=== PATIENT | male | born 1970 | race Caucasian/White ===

== ENCOUNTER 2023-08-14 06:56 | Emergency (ER) | payer MEDICARE, SELFPAY ==
[2023-08-14 07:02] VITALS: BP 175/85
[2023-08-14 08:07] VITALS: BMI 44.2
--- NOTE | 2023-08-14 08:13 | ED.GENMED ---
History of Present Illness
General
Chief Complaint: Swelling
Source: patient
Exam Limitations: none
Time Seen by Provider: 08/14/23 07:35
Nursing documentation reviewed up to this point in time: agreed with
Travel History
Have you had any contact with someone who has COVID-19?: No
Do you have any symptoms of coronavirus? Fever > 100 degrees, chills, cough, shortness of breath, sore throat, loss of taste or smell, muscle aches, or headache?: No
History of Present Illness
History of Present Illness:
52-year-old male hypertension presents with right leg swelling oozing from the anterior portion believes he scratched it has been washing with peroxide is red swollen warm no fever no nausea no vomiting no chest pain or shortness of breath has not
been on antibiotics is a smoker trying to quit
Past History
Past History
ED Past Medical History: HTN and Other (substance abuse)
ED Past Surgical History: None
Social History
Tobacco: Smoker (1 ppd)
Alcohol: None
Drug: Former user
Personal: Single
Living: with family
Employment: Employed
Review of Systems
Review of Systems
All Other Systems: ROS reviewed and negative except as documented in HPI and ROS
Constitutional: Denies fever or fatigue
EENT: Reports no symptoms
Respiratory: Reports no symptoms
Cardiac: Reports no symptoms
ABD/GI: Reports no symptoms
: Reports no symptoms
Musculoskeletal: Reports muscle stiffness
Phy Exam
Physical Exam
Physical Exam:
Physical Exam
General: no apparent distress, not acutely ill
Neck: No jaundice
Heart: s1/s2 regular rate and rhythm, no murmur. equal radial pulses.
Lungs: no acute respiratory distress. clear bilaterally
Abdomen: Nontender
Neuro: alert and oriented. no focal neurological deficits
Skin: no rash
Psychiatric: well kept. interactive and cooperative
Extremities: Anterior leg swelling redness oozing from blisters no posterior calf pain bilateral
Scores
Heart Failure Risk
Heart Failure Risk Score: Not Applicable
Course
Orders/Labs/Results
Orders:
Orders
08/14/23 08:00
US Periph Venous LOWER Ext RT Urgent
Comment:
Reason For Exam: swelling
08/14/23 08:08
Complete Blood Count/With Diff Urgent
Comprehensive Metabolic Panel Urgent
Lactic Acid Q4H
Comment: CANCEL 2nd LACTIC ACID IF 1st LACTIC ACID IS LESS THAN 2
Blood Culture Q30M
CHERI Source: Blood/Venous
Specimen Description:
Blood Culture Q30M
CHERI Source: Blood/Venous
Specimen Description:
08/14/23 08:28
CeFAZolin 2 GRAM [Ancef] 2 grams in 10 ml IV NOW
Abnormal Lab Results
08/14/23
08:08
RBC 4.39 L 10^6/uL
(4.70-6.10)
MCH 32.3 H pg
(27.0-31.0)
Absolute Monos (auto) 0.8 H 10^3/uL
(0.1-0.6)
Lymphocytes % 20.3 L %
(20.5-51.1)
AST 64 H U/L
(17-59)
ALT 89 H U/L
(0-50)
08/14/23 08:08
08/14/23 08:08
Vital Signs
Initial and Last Documented VS:
Initial Vital Signs
Temp Pulse Resp BP Pulse Ox
98.8 F 82 18 175/85 97
08/14/23 07:02 08/14/23 07:02 08/14/23 07:02 08/14/23 07:02 08/14/23 07:02
Last Documented Vital Signs
Temp Pulse Resp BP Pulse Ox
98.8 F 67 16 120/60 96
08/14/23 07:02 08/14/23 08:26 08/14/23 08:26 08/14/23 08:26 08/14/23 08:26
MDM/Problems Addressed
Differential Diagnosis Includes:
Cellulitis dermatitis DVT
MDM/Problems Addressed:
Right leg swelling
Chronic conditions affecting care: HTN
Acute Exacerbation and/or Progression of Chronic Illness: HTN
*Critical Care Note
Total Time (30-74mins, 75-104mins- exclusive of procedures): Not Applicable
Update Note
Update Note:
Update labs noted ultrasound noted. Stable for outpatient care
RN reports that Keflex is not covered by his plan patient requesting alternative we will send a prescription for doxycycline
ED Attending Note
-
Portions of this chart may have been created with voice recognition software.� Occasional wrong word or��sound alike� substitutions may have occurred due to the inherent limitations of voice recognition software.
Discharge Plan
Departure
Patient Disposition: Home (Routine Discharge)
Date of Disposition: 08/14/23
Time of Disposition: 09:33
Patient with high blood pressure during this ER visit?: No
Condition: Good
Discharge Problem:
Cellulitis
Instructions: Dependent Edema (DC), Cellulitis (Skin Infection), Adult ED
Prescriptions:
New
cephalexin 750 mg capsule
750 mg PO Q6H 10 Days Qty: 40 0RF
doxycycline monohydrate 100 mg capsule
100 mg PO BID Qty: 20 0RF
No Action
methadone [Methadose] 100 MG/10 ML concentrate
180 mg PO DAILY
metoprolol succinate [Toprol XL] 100 mg Tablet Extended Release 24 Hr
100 mg PO DAILY
lisinopril-hydrochlorothiazide 10-12.5 mg Tablet
1 tab PO DAILY
Referrals:
David Bone MD [Family Provider] - Next open appointment
Activity Restrictions/Additional Instructions:
Elevate your leg, antibiotics as prescribed follow-up with your family doctor return to the ER if worsening symptoms
Interventions
Interventions:
*Risk Screen - Suicide Last Done: 08/14/23 08:08
*General Assessment Last Done: 08/14/23 07:02
*Neglect/Abuse Screening Last Done: 08/14/23 08:08
ED- Fall Risk Assessment Last Done: 08/14/23 08:08
*ED COVID-19 Vaccine History Last Done: 08/14/23 07:02
ED- Cardiac Assessment Last Done: 08/14/23 08:27
ED- Pulmonary Assessment Last Done: 08/14/23 08:27
ED-Skin Assessment Last Done: 08/14/23 08:27
[2023-08-14 08:26] VITALS: BP 120/60
[2023-08-14 08:35] LABS: % Basophils 0.5 % (0-2); % Eosinophils 3.6 % (0-6); % Immature Granulocytes 0.4 % (0-0.5); % Lymphocytes 20.3 % (20.5-51.1); % Monocytes 9.2 % (1.7-9.3); Absolute Eosinophils 0.3 10^3/uL (0-0.7); Absolute Lymphocytes 1.7 10^3/uL (1.2-3.4); Absolute Monocytes 0.8 10^3/uL (0.1-0.6); Absolute Neutrophils 5.4 10^3/uL (1.4-6.5); Hematocrit 40.6 % (39.0-52.0); Hemoglobin 14.2 g/dL (13.0-18.0); Mean Corpuscular Hgb 32.3 pg (27.0-31.0); Mean Corpuscular Volume 92.5 fL (80.0-94.0); Mean Platelet Volume 9.2 fL (7.4-10.4); Nucleated Red Blood Cells % 0 % (-); Platelet Count 221 10^3/uL (130-400); Red Blood Cell Count 4.39 10^6/uL (4.70-6.10); Red Cell Dist. Width 12.7 % (11.5-14.5); White Blood Cell Count 8.2 10^3/uL (4.8-10.8)
[2023-08-14 08:50] LABS: Lactic Acid 1.1 mmol/L (0.7-2.0)
[2023-08-14 08:51] LABS: ALT (SGPT) 89 U/L (0-50); AST (SGOT) 64 U/L (17-59); Albumin 3.9 g/dl (3.5-5.0); Alkaline Phosphatase 78 U/L (38-126); Blood Urea Nitrogen 20 mg/dl (9-20); Calcium 9.2 mg/dl (8.4-10.2); Carbon Dioxide 29 mmol/L (22-30); Chloride 103 mmol/L (98-107); Estimated Creatinine Clearance > 125 ml/min; Glucose 98 mg/dl (70-99); Potassium 3.9 mmol/L (3.5-5.1); Sodium 137 mmol/L (135-145); Total Bilirubin 0.7 mg/dl (0.2-1.3); Total Protein 6.9 g/dl (6.3-8.2); eGFR > 60.00
[2023-08-14] MEDS: ANCEF 10 IV (09:18)
== END 2023-08-14 10:00 | disposition home or self-care (01) ==
LOC: EMR 06:56
PROVIDERS: EMERGENCY PHYSICIAN Emergency Medicine; FAMILY PHYSICIAN Family Medicine
DX: L03.90 Cellulitis, unspecified (principal); I10 Essential (primary) hypertension; F17.200 Nicotine dependence, unspecified, uncomplicated
CPT/HCPCS: 99284; 96374; 80053; 83605; 85025; 87040; 93971

== ENCOUNTER 2025-06-09 03:23 | Inpatient (IN) | payer MEDICARE, SELFPAY ==
[2025-06-08] VITALS (12 sets, daily range): BP systolic 102–129; BP diastolic 62–104; BMI 42.6
[2025-06-08 21:28] LABS: Hematocrit 41.6 % (39.0-52.0); Hemoglobin 14.4 g/dL (13.0-18.0); Mean Corp Hgb Conc. 34.6 g/dL (33.0-37.0); Mean Corpuscular Volume 87.2 fL (80.0-94.0); Nucleated Red Blood Cells % 0 % (-); Platelet Count 296 10^3/uL (130-400); Red Cell Dist. Width 12.7 % (11.5-14.5)
--- NOTE | 2025-06-08 21:29 | ED.GENMED ---
History of Present Illness
General
Chief Complaint: Chest Pain
Source: patient and ambulance crew
Exam Limitations: none
Time Seen by Provider: 06/08/25 21:10
History of Present Illness
History of Present Illness:
54-year-old male chronic pain syndrome on methadone, hypertension, metoprolol on diuretic Lasix smoker presents with shortness of breath, chest pains been having chest pain in mornings for few weeks with exercise intolerance had a toothache today
went to the dentist was given antibiotics, tooth infection, most of last night, apparently was gasping today when he was sleeping, after taking some sleeping pills, EMS was called his tachycardic EKG, denies any chest pain or shortness of breath now
Recently treated with antibiotics for bilateral cellulitis, has had no fever recently, denies any IV drug use
Past History
Past History
ED Past Medical History: CHF, HTN and Other (substance abuse); Negative COPD, GERD, IDDM or Renal failure
ED Past Surgical History: None
Social History
Tobacco: Smoker (1 ppd)
Alcohol: None
Drug: Former user
Personal: Single
Living: with family
Employment: Employed
Phy Exam
Physical Exam
Physical Exam:
Physical Exam
General: Somewhat sleepy but arousable 54 male
Neck: Poor dentition no true
Heart: Regular
Lungs: Basilar crackles
Abdomen: Not tender
Neuro: alert and oriented. no focal neurological deficits
Skin: no rash
Psychiatric: well kept. interactive and cooperative
Extremities: Trace edema with mild redness
Scores
Heart Score for Chest Pain Patients
STEMI patient?: No
History: Moderately Suspicious
ECG: Nonspecific Repolarization
Age: >45 - <65 years
Risk Factors: 1 or 2 Risk Factors
Troponin: >/= 3 x Normal Limit
Heart Score for Chest Pain Patients: 6
Heart Score Risk: 20.3% MACE over next 6 weeks
Course
Orders/Labs/Results
Orders:
Orders
06/08/25 21:10
Electrocardiogram (*1) Urgent
Reason for Study: Chest Pain
Cardiac Monitoring- Treatment ONCE
EKG- Treatment ONCE
IV Insert/Care/Rem.- Treatment PRN
O2 Therapy [RESP] Urgent
Titrate/Wean O2 to maintain O2 sat greater than (%): 90
Special Instructions: Maintain sats >/=90%
Pulse Ox/spot Check [RESP] Urgent
Quantity: 1
Special Instructions: ON ROOM AIR
06/08/25 21:21
Complete Blood Count/With Diff Urgent
Comprehensive Metabolic Panel Urgent
Troponin I Urgent
06/08/25 21:26
Aspirin 325 mg PO NOW STA
CR Chest Portable - 1 View Urgent
Comment:
Reason For Exam: sob
Reason Study Needs to be Portable: Patient Unstable
06/08/25 21:27
Nitroglycerin Sublingual [Nitrostat (Sublingual)] 0.4 mg SL [id number] PRN
06/08/25 22:06
Heparin 4,000 units IV NOW STA
Potassium Chloride [KCl] 40 meq PO NOW STA
06/08/25 22:[address] Non Medication Order As Directed
Physician Order: PTT 6 hours after initial start of Heparin infusion
Above order entered?: Yes
06/08/25 22:15
Heparin 90244 Units/250 ml 25,000 units in 250 ml IV PER PROTOCOL
Weight to be used for heparin protocol in kilograms (kg):: 146.4
Protocol:: Cardiac Tx/Acute Coronary
PTT Goal Range to be used:: PTT 73 to 111 seconds
Order type:: Initial
INITIAL Infusion Dose (UNITS/KG/hr) & then follow protocol:: 12 units/kg/hr
Infusion Dose in UNITS/hr & then follow protocol (UNITS/hr):: 1,000
INFUSION RATE in mL/hr & then follow protocol (mL/hr):: 10
PTT less than or equal to 64 seconds:: Increase rate by 200 units/hr (+ 2 mL/hr)
PTT 64.1 to 72.9 seconds:: Increase rate by 100 units/hr (+ 1 mL/hr)
PTT 73 to 111 seconds:: Target Range. No change in rate.
PTT 111.1 to 130.9 seconds:: Decrease rate by 100 units/hr (- 1 mL/hr)
PTT 131 to 199.9 seconds:: HOLD for 1 hr. Then decrease rate by 200 units/hr (- 2 mL/hr)
PTT greater than or equal to 200 seconds:: HOLD for 2 hrs & Notify Provider. Then decrease by 200 units/hr (-
2 mL/hr)
Lab follow-up:: Each change, PTT q6h until 2 consecutive are therapeutic. Then PTT
daily.
06/08/25 22:31
PT/INR [Prothrombin Time] Urgent
PTT Urgent
06/08/25 22:54
Electrocardiogram (*1) Urgent
Reason for Study: Abdominal Pain
EKG- Treatment ONCE
06/08/25 23:51
CT Chest PE Study Urgent
Comment:
Reason For Exam: cp sob
06/09/25 01:58
Troponin I Routine
06/09/25 02:00
Acetaminophen [Tylenol] 650 mg PO NOW STA
06/09/25 04:30
PTT Urgent
Abnormal Lab Results
06/08/25 06/08/25
21:21 22:31
WBC 18.0 H 10^3/uL
(4.8-10.8)
Abs Immat Gran (auto) 0.1 H 10^3/uL
(0-0.05)
Absolute Neuts (auto) 14.3 H 10^3/uL
(1.4-6.5)
Absolute Monos (auto) 1.2 H 10^3/uL
(0.1-0.6)
Neutrophils % 79.7 H %
(42.2-75.2)
Lymphocytes % 12.4 L %
(20.5-51.1)
APTT 44.0 H Sec
(23.4-35.0)
Sodium 134 L mmol/L
(135-145)
Potassium 3.4 L mmol/L
(3.5-5.1)
Chloride 96 L mmol/L
(98-107)
BUN 22 H mg/dl
(9-20)
Glucose 159 H mg/dl
(70-99)
Troponin I 1.210 H* ng/ml
Total Protein 8.4 H g/dl
(6.3-8.2)
06/08/25 21:21
06/08/25 21:21
Vital Signs
Initial and Last Documented VS:
Initial Vital Signs
Temp Pulse Resp
98.6 F 111 20
06/08/25 21:12 06/08/25 21:12 06/08/25 21:12
Last Documented Vital Signs
Temp Pulse Resp BP Pulse Ox
98.6 F 87 17 138/87 91
06/08/25 21:12 06/09/25 01:45 06/09/25 01:15 06/09/25 01:45 06/08/25 23:45
MDM/Problems Addressed
Differential Diagnosis Includes:
ACS PE pneumothorax pericarditis
MDM/Problems Addressed:
Chest pain shortness
Chronic conditions affecting care: HTN
Acute Exacerbation and/or Progression of Chronic Illness: HTN
*Radiology
Radiology exam reviewed: preliminary read by ED provider
*Pulse Oximetry
SaO2: 98
Oxygen Mode of Delivery: Room air
Patient hypoxic: no
*EKG
Interpreted by ED Provider?: Yes
Interpretation: abnormal
Comparison EKG: no comparison EKG present
Heart Rate: 110
Rate: tachycardiac
Rhythm: sinus
Ischemia: ST depression
*Vessel Slagman Interpretation
Rate: tachycardiac
Interpretation: abnormal
Heart Rate: 110
Rhythm: sinus
*Critical Care Note
Total Time (30-74mins, 75-104mins- exclusive of procedures): 30
Update Note
Update Note:
10 PM update labs noted patient chest pain-free now suspect ACS PE is a possibility, will start on unfractionated heparin check CT of the chest replete potassium
2:15 AM patient chest pain-free CT chest report noted, check second troponin
ED Attending Note
-
Portions of this chart may have been created with voice recognition software.� Occasional wrong word or��sound alike� substitutions may have occurred due to the inherent limitations of voice recognition software.
Discharge Plan
Departure
Patient Disposition: Admit
Date of Disposition: 06/09/25
Time of Disposition: 02:14
Admit to: IVU
Presentation/result/management discussed w/ accepting MD/DO: Hospitalist
Patient with high blood pressure during this ER visit?: Yes
Condition: Fair
Discharge Problem:
ACS (acute coronary syndrome)
Prescriptions:
No Action
methadone [Methadose] 100 MG/10 ML concentrate
180 mg PO DAILY
metoprolol succinate [Toprol XL] 100 mg Tablet Extended Release 24 Hr
100 mg PO DAILY
lisinopril-hydrochlorothiazide 10-12.5 mg Tablet
1 tab PO DAILY
amoxicillin 500 mg Capsule
500 mg PO BID
Rx Instructions:
s/p dental procedure today
furosemide [Lasix] 80 mg Tablet
80 mg PO DAILY
Referrals:
David Bone MD [Family Provider, Family Practice]
Interventions
Interventions:
*General Assessment Last Done: 06/08/25 21:12
*Neglect/Abuse Screening Last Done: 06/08/25 21:12
*ED COVID-19 Vaccine History Last Done: 06/08/25 21:16
*ED Influenza Vaccine History Last Done: 06/08/25 21:16
[facility] Fall Risk Assessment Tool Last Done: 06/08/25 21:17
*Risk Screen - Suicide (C-SSRS) Last Done: 06/08/25 21:16
ED- Cardiac Assessment Last Done: 06/08/25 21:18
Discharge Date and Time
Print Language: MOLDOVAN
[2025-06-08] MEDS: ASPIRIN 325 MG PO (21:33)
[2025-06-08 21:47] LABS: ALT (SGPT) 41 U/L (0-50); AST (SGOT) 46 U/L (17-59); Albumin 4.7 g/dl (3.5-5.0); Alkaline Phosphatase 90 U/L (38-126); Blood Urea Nitrogen 22 mg/dl (9-20); Calcium 9.8 mg/dl (8.4-10.2); Carbon Dioxide 27 mmol/L (22-30); Chloride 96 mmol/L (98-107); Estimated Creatinine Clearance > 125 ml/min; Glucose 159 mg/dl (70-99); Potassium 3.4 mmol/L (3.5-5.1); Sodium 134 mmol/L (135-145); Total Protein 8.4 g/dl (6.3-8.2); eGFR > 60.00
[2025-06-08 21:55] LABS: Troponin I 1.210 ng/ml
[2025-06-08] MEDS: HEPARIN 4000 UNITS IV (22:20)
[2025-06-08] MEDS: KCL 40 MEQ PO (22:20)
[2025-06-08] MEDS: HEPARIN 25000 UNITS/250 ML IV (22:28)
[2025-06-08 22:54] LABS: INR 1.10; PT 14.0 Sec (11.4-14.6)
[2025-06-08 22:55] LABS: APTT 44.0 Sec (23.4-35.0)
[2025-06-09] VITALS (15 sets, daily range): BP systolic 94–151; BP diastolic 45–95
[2025-06-09] MEDS: TYLENOL 650 MG PO (02:02)
--- NOTE | 2025-06-09 02:56 | HPS.HSE ---
Family Physician
-
Family Physician: David Bone
Chief Complaint
-
Chest pain
History of Present Illness
This is a 54-year-old with a history of substance abuse currently on methadone, hypertension, history of prior cellulitis presents to the emergency department with chest pain.
He reports complaints of chest pressure intermittently that occurs with activity over the past few weeks. His brother reported that he was gasping for here today while sleeping. Has had decreased exercise tolerance over the last 5 months.
Patient stated that initially he had occasional symptoms about once a month 5 months ago. Reports that now when he walks about half a city block or after 50 minutes of exercise he develops chest pressure that last for a few minutes and then
subsides. He denies any radiation to his arms neck or jaw. Reports that he has been having more frequent symptoms over the last week. He stated that today he did have tooth infection and so dentist and was placed on amoxicillin. After he went
back home he tried to sleep. He woke up from sleep and altered state. He is brought found him complaining of not able to catch his breath and some chest pressure. This lasted several minutes although patient reported that it resolved by the time
EMS arrived. He has a positive family history of coronary artery disease but he denies any prior history of CAD. He is on methadone due to history of substance dependence and he has been on a stable dose of 180 mg daily. He also takes 80 mg of
Lasix for chronic lymphedema and associated history of cellulitis.
In the emergency department he was afebrile, blood pressure was 138/80 with a pulse of 87 and oxygen saturation of 91% on room air. ECG shows sinus tach at a rate of 106 with Q waves in lead III only. QTc is elevated to over 600. Initial troponin
was 1.2. He has white count of 18 otherwise normal and ambulates with normal. Electrolytes were unremarkable. Glucose was 159.
Patient had a CT PE study which was negative for PE, it was negative for any infarct, it was negative for congestive heart failure and negative for pneumonia.
Medical History
Past Medical History
Past Medical History: Reports HTN and Other (Substance dependence currently on methadone)
Past Surgical History: Reports Other
Social History
Tobacco: Smoker (3/ ppd)
Alcohol: None
Drug: Former User
Personal: Single
Living: With Family
Employment: Employed
Family History
Family History: Not pertinent
Allergies / Home Medications
Allergies reflects when Allergies were last updated in [facility].
Home Medications with original date entered in [facility]
Allergy/Medication List:
Allergies
Allergy/AdvReac Type Severity Reaction Status Date / Time
No Known Allergies Allergy Unverified 06/08/25 22:14
Home Medications
methadone 10 mg/mL oral concentrate (Methadose) 180 mg PO DAILY 10/26/18
lisinopril 10 mg-hydrochlorothiazide 12.5 mg tablet 1 tab PO DAILY 08/14/23
metoprolol succinate 100 mg tablet,extended release 24 hr (Toprol XL) 100 mg PO DAILY 08/14/23
amoxicillin 500 mg capsule 500 mg PO BID 06/08/25
furosemide 80 mg tablet (Lasix) 80 mg PO DAILY 06/08/25
Review of Systems
-
Constitutional: Reports No Symptoms
EENT: Reports No Symptoms
Respiratory: Reports Trouble Breathing
Cardiac: Reports Chest Pain
Abdomen/GI: Reports No Symptoms
: Reports No Symptoms
Musculoskeletal: Reports No Symptoms
Skin: Reports No Symptoms
Neurological: Reports No Symptoms
Endocrine: Reports No Symptoms
Hematologic/Lymphatic: Reports No Symptoms
Psych: Reports No Symptoms
Physical Exam
Vital Signs
Vital Signs
Temp Pulse Resp BP Pulse Ox
98.6 F 87 17 138/87 91
06/08/25 21:12 06/09/25 01:45 06/09/25 01:15 06/09/25 01:45 06/08/25 23:45
Physical Exam
General: Well Developed, Well Nourished, No Apparent Distress and Obese
HEENT: NormoCephalic, Moist mucous membranes and Atraumatic
Respiratory: Clear
Cardiac: S1/S2 and Regular Rhythm; No Murmur or Rub
GI: Soft, Non Tender, Non Distended and Normal Bowel Sounds; No Organomegaly
Rectal: Deferred by Provider
Musculoskeletal: No Clubbing, No Cyanosis and No Edema
Skin: No Rash
Neuro: Nonfocal/grossly intact
Laboratory Results
-
06/08/25 21:21
06/08/25 21:21
Laboratory Results
PT 14.0 Sec (11.4-14.6) 06/08/25 22:31
INR 1.10 06/08/25 22:31
APTT 44.0 Sec (23.4-35.0) H 06/08/25 22:31
Total Bilirubin 0.9 mg/dl (0.2-1.3) 06/08/25 21:21
AST 46 U/L (17-59) 06/08/25 21:21
ALT 41 U/L (0-50) 06/08/25 21:21
Alkaline Phosphatase 90 U/L (38-126) 06/08/25 21:21
Troponin I 1.210 ng/ml H* 06/08/25 21:21
Data Reviewed
-
CT Scan: Report Reviewed by me
Medical Tests (Nuc Med, Echo, EKG etc): Image Personally Visualized and interpreted
Lab Data: Labs Reviewed by me
Old Records: Reviewed
Impression/Plan
-
IMPRESSION:
54-year-old male with obesity, hypertension, methadone use who presents to the emergency department with intermittent chest pain over the last few weeks has been worsening, chest pain today, shortness of breath and was found to have NSTEMI with a
troponin of 1.2. ECG shows Q waves in lead III but otherwise elongated QT. Labs are otherwise unremarkable. CT PE is negative for PE.
PLAN:
NSTEMI -suspect ischemic due to episodes of exertional dyspnea and exertional chest pressure but cannot rule out nonischemic cardiomyopathy and possible myocarditis. Currently chest pain-free. Troponin rising from 1.2-3.2.
� Admit to telemetry
�N.p.o. at breakfast pending cardiology evaluation
�Started on heparin drip
� Status post aspirin
� Trend troponin
� Check echocardiogram
� Check A1c and lipid panel
� Check CRP
� Continue metoprolol succinate for now
� Continue Lasix 80 mg with hold parameters
� Continue lisinopril and hydrochlorothiazide for now
� Keep K and mag greater than 4 and 2
� Cardiology consult
Prolongation of QT -likely secondary to methadone,
� Will continue methadone for now
� Avoid QT prolongation medication
� Keep K migrating 4 and 2
�Monitor QT
Tooth infection
� Continue amoxicillin 500 mg every 8 hours
DVT prophy�on heparin drip
CODE STATUS�full code
[2025-06-09 03:01] LABS: Troponin I 3.250 ng/ml
[2025-06-09] MEDS: AMOXIL 500 MG PO ×3 (03:24→23:11)
[2025-06-09 05:34] LABS: APTT 36.9 Sec (23.4-35.0)
[2025-06-09] MEDS: AFRIN NASAL SPRAY 1 SPRAYS NASAL (06:11)
[2025-06-09 06:21] LABS: Blood Urea Nitrogen 21 mg/dl (9-20); Calcium 9.4 mg/dl (8.4-10.2); Carbon Dioxide 29 mmol/L (22-30); Chloride 99 mmol/L (98-107); Estimated Creatinine Clearance > 125 ml/min; Glucose 103 mg/dl (70-99); HDL Cholesterol 37 mg/dl; LDL Cholesterol, Calculated 154 mg/dl; Magnesium 2.2 mg/dl (1.6-2.3); Sodium 137 mmol/L (135-145); Very Low Density Lipoprotein 27 mg/dl (0-30); eGFR > 60.00
[2025-06-09 06:26] LABS: Potassium 3.7 mmol/L (3.5-5.1)
[2025-06-09 06:31] LABS: Hematocrit 37.6 % (39.0-52.0); Hemoglobin 13.1 g/dL (13.0-18.0); Mean Corp Hgb Conc. 34.8 g/dL (33.0-37.0); Mean Corpuscular Volume 87.9 fL (80.0-94.0); Platelet Count 221 10^3/uL (130-400); Red Cell Dist. Width 12.9 % (11.5-14.5)
[2025-06-09 06:34] LABS: Troponin I 6.060 ng/ml
--- NOTE | 2025-06-09 08:16 | CON.CAR ---
Addendum entered and electronically signed by Nasim Weinstein MD 06/09/25 10:23:
Patient seen and examined in collaboration with [employer]; agree with below.
- 54-year-old male with hypertension, chronic continued cigarette use, previous drug/alcohol abuse (on maintenance methadone for the past 8 years), and obesity presenting with chest pain and shortness of breath. Cardiac enzymes increasing,
consistent with an NSTEMI.
- Exam: Heart regular rate and rhythm, normal S1-S2; lungs bibasilar rhonchi; trace-1+ lower extremity edema with bilateral mild erythema.
- Continue heparin drip; full-dose aspirin administered.
- Patient will undergo cardiac catheterization today; it is noted that he has a large right solid renal mass of unclear etiology--Urology consulted.
- Case discussed with Interventional Cardiology and Hospitalist.
Original Note:
Consultation
Consultation Request
Date/Time Consultation Requested: 06/09/25 3:30a
Date/Time Consultation Performed: 06/09/25 8a
Requesting Provider: Dr. Pugh
Performing Provider: THANIA Vargas for Dr. Weinstein
Reason for Consultation: chest pressure
Medical History
-
Chief Complaint: chest pressure
History of Present Illness:
Mr. Cope is a 54 yo male with HTN, obesity and prior drug/alcohol abuse on Methadone (clean for 8 years), who presents to the ER with c/o acute SOB that woke him from sleeping last night. He then c/o chest pressure at rest. He states having
chest pressure with exertion (walking) for the last 5-6 months, it resolves with rest. Last week he had chest pressure 3-4 times with minimal exertion. He also states having b/l LE cellulitis treated with antibiotics per PCP Dr. Bone last week.
He had left sided tooth pain and saw his dentist 2 days ago, given amoxicillin. Currently he denies any chest pressure or SOB. He is admitted to the hospitalist service and we are consulted for NSTEMI, plan for laboratory courier today.
Past Medical History
Past Medical History: Other (as above )
Past Surgical History: Orthopedic (b/l shoulder replacements, b/l hip replacements)
Social History
Tobacco: Smoker (2/3 a pack a day for 10 years)
Alcohol: None
Drug: Former User (clean for 8 years, on Methadone)
Personal: Single
Living: With Family (mother and older brother)
Employment: Disabled
Family History
Family History: Reviewed & Not Pertinent
Allergies / Home Medications
Allergy/AdvReac Type Severity Reaction Status Date / Time
No Known Allergies Allergy Unverified 06/08/25 22:14
�Medication �Instructions �Recorded �Confirmed �Type
methadone 10 mg/mL oral 180 mg PO DAILY 10/26/18 06/08/25 History
concentrate (Methadose)
lisinopril 10 1 tab PO DAILY 08/14/23 06/08/25 History
mg-hydrochlorothiazide 12.5 mg
tablet
metoprolol succinate 100 mg 100 mg PO DAILY 08/14/23 06/08/25 History
tablet,extended release 24 hr
(Toprol XL)
amoxicillin 500 mg capsule 500 mg PO BID 06/08/25 06/08/25 History
furosemide 80 mg tablet (Lasix) 80 mg PO DAILY 06/08/25 06/08/25 History
Review of Systems
-
History Source: Patient
All other systems: Negative unless noted
Physical Exam
Vital Signs
Temp Pulse Resp BP Pulse Ox
98.6 F 72 11 128/87 91
06/08/25 21:12 06/09/25 06:00 06/09/25 06:00 06/09/25 05:45 06/08/25 23:45
Lab Results
06/09/25 05:41
06/09/25 05:41
Troponin I 6.060 ng/ml H* D 06/09/25 05:41
Wcb-[id number]-Hyabeqwyguq Pept 1200 pg/ml 06/09/25 05:41
Physical Exam
General: Well Developed, Well Nourished, No Apparent Distress and Other (obese)
HEENT: Normocephalic, Anicteric and Moist Mucous Membranes
Respiratory: Clear and Non Labored Respirations
Cardiac: S1/S2, Regular Rhythm and Peripheral Edema (mild b/l LE with erythema and dryness)
Breast: Deferred by me
GI: Soft, Non Tender and Normal Bowel Sounds
Rectal: Deferred by Provider
Genito-urinary: Clear Urine
Musculoskeletal: Edema (mild b/l LE)
Skin: Warm and Dry (very dry skin on b/l LE with erythema)
Neuro: AO x 3
Hematologic/Lymphatic: No Lymphadenopathy
Psych: Calm
Impression / Plan
-
NSTEMI - acute.
- having exertional chest pressure when walking for the last 5-6 months, resolves with rest.
- exertional symptoms worsening for the last couple weeks with less exertion.
- chest pressure occurred while sitting last night, also SOB.
- troponin 1.21, 3.25, 6.06, trend to peak.
- EKG with lateral ST depression.
- received ASA, IV Heparin and currently pain free.
- plan for [facility] today, NPO.
- check echo.
- lipid profile TC 218, TG 136, HDL 37, LDL 154.
HTN - stable on outpatient meds, continue.
Tooth infection/pain - acute 2 days ago, on amoxicillin per dentist.
- per hospitalist.
Former drug use - on Methadone daily.
- clean for 8 years.
Possible large solid right renal mass - noted on chest CT.
- radiology recommends CT kidneys with IV contrast.
- per hospitalist.
Obesity - chronic.
- would benefit from weight loss.
Data Reviewed
-
EKG: Tracing Personally Visualized and interpreted (SR with lateral ST depression )
Radiology: Report Reviewed by me (CXR: NAD)
CT Scan: Report Reviewed by me (chest: no acute abnormality, no PE, possible large solid right renal mass. )
Labs: Labs Reviewed by me
Old Records: Reviewed
[2025-06-09] MEDS: LASIX 80 MG PO (08:48)
[2025-06-09] MEDS: ZESTRIL 10 MG PO (08:48)
[2025-06-09] MEDS: TOPROL XL 100 MG PO (08:48)
[2025-06-09] MEDS: COLACE PO (08:48)
[2025-06-09] MEDS: ORETIC 12.5 MG PO (09:04)
[2025-06-09 09:31] LABS: Glycohemoglobin (HgbA1c) 6.0 % (4.0-5.9)
--- NOTE | 2025-06-09 09:39 | W.PN.UPDATE ---
Update Note
Progress Note Update
Patient admitted 3 AM
Patient admitted with NSTEMI - started on IV heparin. CBC cards evaluation and plan is for labor expediter today.
PE study negative for PE but did reveal large solid R renal mass for which Urology was consulted and plan is for CT with contrast in the evening.
At present, patient denies CP or SOB.
Assessment:
Acute NSTEMI
- life threatening diagnosis
- Trop 6.0 this morning
- NPO for cardiac cath today
- continue IV heparin, requires intensive monitoring of PTTs
- s/p ASA; add daily baby ASA post-cath
- check lipids; add Statin later
- continue Toprol XL
- A1c
- Echo
- CBC cardiology following
Essential HTN
- hold BUBBA/HCTZ
- continue BB
Hx of prolonged QTC - likely from chronic Methadone use
Chronic Methadone use for hx of IVDA
- Prescriber of Methadone is Emigdio - pharmacy to clarify his dosing; for now continue 180mg daily
- monitor K and Mag and keep above goal
Recent Dental infection
- Amoxicillin continues
Leukocytosis
RLE cellulitis
- continue Amoxicillin, add doxycycline - total 10 day course for both.
R sided solid renal Mass
- CT w/w-out IV contrast (mass protocol) ordered for this evening (for post cath)
Hypokalemia
- replete to >4
DVT ppx: IV Heparin
Code: Full
--- NOTE | 2025-06-09 09:53 | CM ---
Chart reviewed and spoke with patient at ED bedside
Lives in an apt with mother and brother Ramon
s/p bilateral hip surgeries
no DME independent with all ADLs and ambulation
PCP Dr. David Bone
[facility] in [place]
no hx of VN nor SNF
hx of outpt PT s/p hip surgeries
DCP is to return home
CM will continue to follow up for any dcp needs
[2025-06-09] MEDS: VIBRAMYCIN 100 MG PO ×2 (10:40→19:55)
[2025-06-09] MEDS: KCL 40 MEQ PO (10:40)
[2025-06-09] MEDS: METHADONE 100 MG/10 ML 180 MG PO (10:40)
--- NOTE | 2025-06-09 10:41 | PHANOTE ---
Addendum entered by Ines Main 06/09/25 15:02:
unable to fax methadone clinic medical release form, keep getting a busy form print out. also tried three different fax machine in the hospital . all got the same message
Original Note:
med rec note- faxed methadone clinic in [place] three time without any response back, tried again and there fax machine is busy
--- NOTE | 2025-06-09 11:07 | CARDSERVLU ---
Echocardiogram with Lumason completed after protocol screening completed. Allergies verified.
Patent IV site: RT AC____
IV site flushed with 0.9% NaCl pre and post administration.
Diluted bolus method utilized to enhance visualization of ventricular ferguson.
Total volume given: _3.0___ mL
Patient tolerated all procedures well without complications.
[2025-06-09 11:46] LABS: APTT 37.6 Sec (23.4-35.0)
[2025-06-09 12:00] LABS: Troponin I 5.080 ng/ml
--- NOTE | 2025-06-09 12:02 | EDRN ---
trop trending down, this RN called the cathead operator and gave verbal report to Jacque CARDENAS
--- NOTE | 2025-06-09 12:54 | W.PN.UPDATE ---
Update Note
Progress Note Update
Attempted to see patient but currently in research lab assistant
Reviewed imaging showing possible R renal mass
Will need CT abd/pel w/wo to eval further - ordered for this evening
Patient to be seen by me post procedure or tomorrow
--- NOTE | 2025-06-09 13:13 | ITS.CL.PN ---
Director Of Patient Care - Procedure Note
Procedure
Procedure Note:
CARDIAC CATHETERIZATION REPORT
Date of Procedure: 06/09/2025
Referring: Dr. Nasim Weinstein MD
Indication: NSTEMI
PROCEDURE(S)
1. left heart catheterization
2. coronary angiography
ACCESS: 6F right radial artery (closure: radial band)
CATHETERS
1. 6F JR4
2. 6F JL4
MODERATE SEDATION: 25 minutes of moderate sedation was utilized. An independent medical staff manager was present to assist with and help manage the patient's level of consciousness and physiologic status.
HEMODYNAMIC DATA
LV 105/10 (EDP 15) mmHg
AO 108/71 (mean 84) mmHg
CORONARY ANGIOGRAPHY
Dominance: Right
LM: Large vessel with minimal disease.
LAD: Large vessel giving rise to a large branching D1/ramus and moderate caliber D2. There is a focal severe napkin ring ~90% stenosis in the mid LAD after the D2 with TIMI2 flow distally. There is focally severe ~80% stenosis in the proximal D1 and
focally severe ~80% stenosis in the proximal D2.
LCx: Large vessel with a small OM1 and moderate caliber bifurcating OM2. The OM1 has diffuse mild disease throughout and focal proximal stenosis up to ~80%. The OM2 has focally severe ~70% stenosis proximally.
RCA: Large vessel giving rise to a large RPDA, moderate caliber RPL1, and several small distal RPL branches. There is diffuse mild to moderate plaque, a focal 90% stenosis in the mid RCA, and Graham 1,0,0 bifurcation disease at the RPDA/RPL
bifurcation with focal disease up to 90% in the ostium of both branches. There is BARBARA II flow in the RPDA and particularly in the distal RPL branches. The RPDA is a reasonable surgical conduit, however the RPL system, though subtending a relatively
large territory, does not appear to have branches of sufficient caliber for bypass conduits.
RADIATION: dose 516 mGy; DAP 56 Gy*cm2; fluoroscopy time 2.4 min
CONCLUSIONS
1. Mildly elevated LV filling pressure and no aortic stenosis.
2. Severe multivessel coronary artery disease as described with likely culprit stenosis in the mid-LAD, and possibly also the distal RCA.
RECOMMENDATIONS
1. Evaluation for surgical revascularization in this young patient with high complexity CAD. [place] targets would include the LAD, RPDA, D1/ramus, and OM2. The RPL, D1, and OM1 may be too small to bypass, but could be addressed percutaneously after
surgical revascularization if needed.
2. Aggressive secondary prevention of CAD with risk factor modification including high intensity statin and additional medications to achieve goal LDL<55
Copy to: Dr. David Bone MD (PCP)
Signed: Burton Daugherty MD, PhD
--- NOTE | 2025-06-09 13:27 | CONSULT.CT ---
Addendum entered and electronically signed by Eunice Yu MD 06/10/25 10:59:
I have seen and evaluated the patient. Agree with documentation below.
Mr. Cope is a 54 yo male with angina and NSTEMI, additionally has HTN, prior drug use and current smoking and is morbidly obese. His cath shows disease in the LAD, high diag/RI, additional diagonal branch, OM and PDA/PLB. TTE with normal
function and no significant valvular disease. He has good functional status and lives independently, tries to be active but has not been able to tolerate much activity due to angina. He will need to be diligent with his medical care moving forward,
which we have discussed, and will need to commit to smoking cessation. Sounds like he will need teeth extractions given recurrent issues in the past, though seems that most recent infection has been under control. We will obtain xrays to be sure no
additional dental concerns that would affect our plans. Additionally will need to watch his LE cellulitis R>L and will plan to obtain conduit from his left leg only if possible. I have noted the renal mass seen on CT scan, Urology is already
involved. We will plan for CABG x5 tomorrow - RAE to LAD, Radial to RI/high diag, SVG second diag, SVG to OM, SVG to either RCA branch and LAAL. Will look at left radial artery for harvest.
Thank you for involving me in the care of this patient. Please feel free to contact me with any questions or concerns.
Eunice Yu MD, MPH
Cardiothoracic Surgeon
[facility]
This dictation was created using the [employer] dictation system. Please excuse any grammatical, typographical, or 'sound alike' errors.
Original Note:
Consultation
-
Date/Time Consultation Requested: 06/09/2025 1300
Date/Time Consultation Performed: 06/09/2025 1330
Requesting Provider: Dat BOURNE
Performing Provider: Xochitl MONTEIRO for Gigi BOURNE
Reason for Consultation: MVD/CABG eval
Patient History
Physicians
Family Physician: David Bone
Outpatient Field Crop Harvest Worker: N/A
Inpatient Field Crop Harvest Worker: Dr. Weinstein
History of Present Illness
54-year-old with past medical history significant for hypertension, chronic cigarette use, previous EtOH/drug abuse on methadone, and obesity presents to [facility] ER with complaints of chest pain and shortness of breath. Shortness of breath woke him up
from sleeping last night and he states that he has been having chest pressure on exertion for the last 5 to 6 months and it is resolved with rest. Patient was noted to have elevated troponins in the ER, was started on a heparin infusion, and was
taken to the [facility] today where multivessel disease was found. CT surgery was consulted for surgical evaluation.
Of note, patient was found to have a large right renal mass for which urology was consulted.
Past Medical History
Past Medical History: CAD, HTN and SOB
Past Surgical History
Past Surgical History: Orthopedic
Family History
Father: at Age and N/A
Family Medical History: CAD
Social History
Alcohol: Former
Drug: Former User
Tobacco: Former Smoker
Personal: Single
Living: With Family
Employment: Employed
Allergies
Allergy/AdvReac Type Severity Reaction Status Date / Time
No Known Allergies Allergy Unverified 06/08/25 22:14
Home Medications
�Medication �Instructions �Recorded �Confirmed �Type
methadone 10 mg/mL oral 180 mg PO DAILY 10/26/18 06/09/25 History
concentrate (Methadose)
lisinopril 10 1 tab PO DAILY 08/14/23 06/09/25 History
mg-hydrochlorothiazide 12.5 mg
tablet
metoprolol succinate 100 mg 100 mg PO DAILY 08/14/23 06/09/25 History
tablet,extended release 24 hr
(Toprol XL)
furosemide 40 mg tablet (Lasix) 40 mg PO DAILY Fluid 06/09/25 06/09/25 History
Retention/Swelling
Review of Systems
-
History Source: Patient
HEENT: Reports No Symptoms
Respiratory: Reports SOB and SALGADO
Cardiac: Reports Chest Pain and CAD
Abdomen/GI: Reports No Symptoms
: Reports No Symptoms
Musculoskeletal: Reports No Symptoms
Skin: Reports Rash
Neurological: Reports No Symptoms
Vascular: Reports No Symptoms
Physical Exam
Vital Signs
Temp 98.8 F 06/09/25 08:46
Temp route: Oral 06/09/25 08:46
Pulse 76 06/09/25 11:15
Resp Rate 16 06/09/25 08:46
Blood pressure 122/87 06/09/25 08:48
Blood pressure extremity used: Right upper arm 06/09/25 08:46
Position: Lying 06/09/25 08:46
MAP (cuff-Joselo Monitor) 98 06/09/25 08:42
MAP 98 06/09/25 08:46
SaO2 96 06/09/25 08:46
Oxygen Mode of Delivery Room air 06/09/25 08:46
Acceptable pain level during hospitalization? 0 06/08/25 21:12
Can the patient verbally communicate their pain? Yes 06/09/25 03:02
Pain scale ratin 06/09/25 03:02
Actual Weight 146.4 kg 06/08/25 21:17
Body Mass Index (BMI) 42.6 06/08/25 21:11
Labs
06/09/25 05:41
06/09/25 05:41
PT 14.0 Sec (11.4-14.6) 06/08/25 22:31
APTT 37.6 Sec (23.4-35.0) H 06/09/25 11:23
Hemoglobin A1c 6.0 % (4.0-5.9) H 06/09/25 05:41
Troponin I 5.080 ng/ml H* 06/09/25 11:23
Agb-O-Ahbwqiqbugw Pept 1200 pg/ml 06/09/25 05:41
Exam
General: Well Developed, Well Nourished, No Apparent Distress and Comfortable
HEENT: Normocephalic
Respiratory: Clear and Wheezes
Cardiac: S1/S2
GI: Soft, Non Tender and Normal Bowel Sounds
Rectal: Deferred by Provider
Skin: Warm, Dry and Rash (cellulitis on B/L LE extremities)
Neuro: AO x 3 and No Motor Deficits
Extremities: Lower Level Edema
Lymph: No Lymphadenopathy
Psych: Calm
Assessment / Plan
-
54-year-old male with past medical history listed above presents with complaints of chest pressure for 5 to 6 months that has worsened overnight. Patient was noted to have elevated troponins and ruled in for an NSTEMI in the emergency room. He was
taken to the cardiac [facility] and a left heart cath was performed. Multivessel disease was found and CT surgery was consulted.
#CAD
-Patient's case will be discussed with attending physician. Further details regarding surgical timing intervention will be determined after attending physicians full evaluation
-Routine preoperative cardiothoracic surgery orders will be initiated.
-STS risk stratification score will be calculated after preoperative testing is complete
-Will hold lisinopril
-Continue heparin gtt per cardiology
#Cellulitis
- Continue doxycycline
- Will perform bilateral vein mapping
--- NOTE | 2025-06-09 16:45 | CM ---
spoke to pt in room, we discussed preop CABG teaching including sternal and driving restrictions. he is prev indep, lives with his mom and brother in an apt with no steps to enter. he has a cane and a walker to use if needed. he has the ct surgery
book. he is agreeable to a f/u visit from the ct transitional care nurse after dc. plan is for CABG next week, cm role explained and all questions answered.
[2025-06-09] MEDS: LOW STRENGTH ASPIRIN 81 MG PO (17:26)
[2025-06-09 18:17] LABS: APTT 33.5 Sec (23.4-35.0)
[2025-06-09 18:33] LABS: Troponin I 4.220 ng/ml
[2025-06-09] MEDS: COLACE 100 MG PO (19:55)
[2025-06-09] MEDS: HEPARIN 25000 UNITS/250 ML IV (20:46)
--- NOTE | 2025-06-09 21:00 | PTCARENOTE ---
Received patient at change of shift. SR on the monitor, HR in the 80s. R radial CDI, soft. Denies chest pain. No complaints from pt at this time. call corral within reach.
[2025-06-10] VITALS (7 sets, daily range): BP systolic 110–141; BP diastolic 68–110; BMI 41.2
[2025-06-10 03:27] LABS: Hematocrit 43.8 % (39.0-52.0); Hemoglobin 15.2 g/dL (13.0-18.0); Mean Corp Hgb Conc. 34.7 g/dL (33.0-37.0); Mean Corpuscular Volume 91.6 fL (80.0-94.0); Platelet Count 220 10^3/uL (130-400); Red Cell Dist. Width 13.2 % (11.5-14.5)
[2025-06-10 03:36] LABS: INR 1.12; PT 14.5 Sec (11.4-14.6)
[2025-06-10 03:37] LABS: APTT 39.1 Sec (23.4-35.0)
[2025-06-10 04:00] LABS: ALT (SGPT) 47 U/L (0-50); AST (SGOT) 61 U/L (17-59); Albumin 4.8 g/dl (3.5-5.0); Alkaline Phosphatase 94 U/L (38-126); Blood Urea Nitrogen 33 mg/dl (9-20); Calcium 10.1 mg/dl (8.4-10.2); Carbon Dioxide 29 mmol/L (22-30); Chloride 96 mmol/L (98-107); Estimated Creatinine Clearance > 125 ml/min; Glucose 97 mg/dl (70-99); Potassium 4.4 mmol/L (3.5-5.1); Sodium 138 mmol/L (135-145); Total Protein 8.4 g/dl (6.3-8.2); eGFR > 60.00
[2025-06-10] MEDS: VIBRAMYCIN 100 MG PO ×2 (10:13→20:10)
[2025-06-10] MEDS: COLACE 100 MG PO ×2 (10:13→20:10)
[2025-06-10] MEDS: LASIX 80 MG PO (10:13)
[2025-06-10] MEDS: LOW STRENGTH ASPIRIN 81 MG PO (10:13)
[2025-06-10] MEDS: AMOXIL 500 MG PO ×2 (10:13→16:42)
[2025-06-10] MEDS: TOPROL XL 100 MG PO (10:14)
--- NOTE | 2025-06-10 10:26 | W.PN.UPDATE ---
Update Note
Progress Note Update
Procedure Type:�Isolated CABG
Perioperative Outcome Estimate %
Operative Mortality 1.07%
Morbidity & Mortality 7.15%
Stroke 0.613%
Renal Failure 0.932%
Reoperation 1.77%
Prolonged Ventilation 4.63%
Deep Sternal Wound Infection 0.336%
Long Hospital Stay (>14 days) 2.35%
Short Hospital Stay (<6 days)* 59.5%
Clinical Summary
Planned Surgery: Isolated CABG, Urgent, First cardiovascular surgery
Demographics: 54 year old, male, 142kg, 185cm, BMI: 41.5 kg/m�
Lab Values: Creatinine: 0.9 mg/dL, Hematocrit: 43.8%, WBC Count: 12.1 10�/�L, Platelet Count: 834859 cells/�L
PreOp Medications: BUBBA Inhibitors/ARBs <=48 hrs
Substance Abuse: Current smoker
Risk Factors / Comorbidities: Hypertension, Family Hx of CAD
Coronary Artery Disease: 3 vessels diseased, Non-ST Elevation NE, NE: 1 to 7 Days
Valve Disease: Trivial/Trace MR
[2025-06-10 11:00] LABS: APTT 46.7 Sec (23.4-35.0)
[2025-06-10] MEDS: METHADONE 100 MG/10 ML 180 MG PO (11:43)
[2025-06-10] MEDS: HEPARIN 25000 UNITS/250 ML IV (11:54)
--- NOTE | 2025-06-10 13:16 | CONS.URO ---
Consultation
-
Date/Time Consultation Performed: 06/10/25 1300
Performing Provider: Peffer
Reason for Consultation: Renal abnormality
Medical History
History of Present Illness
54M admitted with NSTEMI, in workup for CABG this admission
Chest CT showed a possible 4cm R renal mass, urology consulted to sheila
Patient has prior hx of kidney stone years ago
No hematuria or urinary issues
Past Medical History
Past Medical History: HTN, substance use disorder
Social History
Tobacco: Smoker (08/23 ppd)
Alcohol: None
Drug: Former User
Personal: Single
Living: With Family
Employment: Employed
Family History
Family History: Not pertinent
Allergies/Home Medications
Allergies
Allergy/AdvReac Type Severity Reaction Status Date / Time
No Known Allergies Allergy Unverified 06/08/25 22:14
Home Medications
�Medication �Instructions �Recorded �Confirmed �Type
methadone 10 mg/mL oral 180 mg PO DAILY 10/26/18 06/09/25 History
concentrate (Methadose)
lisinopril 10 1 tab PO DAILY 08/14/23 06/09/25 History
mg-hydrochlorothiazide 12.5 mg
tablet
metoprolol succinate 100 mg 100 mg PO DAILY 08/14/23 06/09/25 History
tablet,extended release 24 hr
(Toprol XL)
furosemide 40 mg tablet (Lasix) 40 mg PO DAILY Fluid 06/09/25 06/09/25 History
Retention/Swelling
Physical Exam
Vital Signs
Vital Signs
Temp Pulse Resp BP Pulse Ox
97.9 F 70 18 120/79 96
06/10/25 13:03 06/10/25 07:45 06/10/25 06:56 06/10/25 06:56 06/10/25 13:03
Lab / Testing Results
Laboratory Results
06/10/25 03:03
06/10/25 03:03
Physical Exam
General: Well Developed, Well Nourished and No Apparent Distress
Respiratory: Clear and Non Labored Respirations
Neuro: AO x 3
Psych: Calm and Intact Judgement
Assessment / Plan
-
54M admitted for NSTEMI
Found on imaging to have possible R renal mass
- CTAP w/wo contrast showed that the abnormal region at R upper pole is just atypical/lobular contour of the kidney
- No suspicious renal mass is present - no further workup is needed
- Some small L renal stones incidentally noted do not require intervention. Recommended outpatient follow up at his convenience to discuss kidney stone prevention in the future
Will sign off - please call with any questions
--- NOTE | 2025-06-10 13:52 | W.PN.CD ---
Today's Communication / Plan
-
- Continue heparin drip.
- Aspirin.
- CABG is planned for tomorrow.
- Continue clinical systems educator.
- Rosuvastatin 40 mg daily.
- CT reviewed by Urology--no renal mass present, it is just atypical lobular contour of the kidney.
Impression / Plan
-
54-year-old male with hypertension, chronic continued cigarette use, previous drug/alcohol abuse (on maintenance methadone for the past 8 years), and obesity presenting with chest pain and shortness of breath. Cardiac enzymes increasing, consistent
with an NSTEMI. Found to have severe multivessel CAD on cardiac catheterization; CABG required.
Severe multivessel CAD/NSTEMI - acute.
- having exertional chest pressure when walking for the last 5-6 months, resolves with rest.
- exertional symptoms worsening for the last couple weeks with less exertion.
- chest pressure occurred while sitting last night, also SOB.
- troponin peaked at 6.06.
- EKG with lateral ST depression.
- Echocardiogram with LVEF of 65-70% with no significant valvular disease.
- Continue heparin drip.
- Continue Toprol-XL.
- Aspirin.
- CABG is planned for tomorrow.
- Continue clinical systems educator.
Hyperlipidemia:
- lipid profile TC 218, TG 136, HDL 37, LDL 154.
- Rosuvastatin 40 mg daily.
HTN :
- Fairly controlled.
Tooth infection/pain - acute 2 days ago, on amoxicillin per dentist.
- per hospitalist.
Former drug use - on Methadone daily.
- clean for 8 years.
Possible large solid right renal mass - noted on chest CT.
- CT reviewed by Urology--no renal mass present, it is just atypical lobular contour of the kidney.
Obesity - chronic.
- would benefit from weight loss.
Physical Exam
Vital Signs/Labs
Vital Signs
Temp Pulse Resp BP Pulse Ox
97.9 F 73 18 130/87 96
06/10/25 13:03 06/10/25 13:30 06/10/25 06:56 06/10/25 13:02 06/10/25 13:03
06/09/25 06/10/25 06/11/25
06:59 06:59 06:59
Actual Weight 146.4 kg 141.6 kg
06/10/25 03:03
06/10/25 03:03
PT 14.5 Sec (11.4-14.6) 06/10/25 03:03
INR 1.12 06/10/25 03:03
APTT Cancelled 06/10/25 18:00
Magnesium 2.2 mg/dl (1.6-2.3) 06/09/25 05:41
Triglycerides 136 mg/dl (10-149) 06/09/25 05:41
LDL Cholesterol, Calc 154 mg/dl 06/09/25 05:41
VLDL Cholesterol, Calc 27 mg/dl (0-30) 06/09/25 05:41
HDL Cholesterol 37 mg/dl 06/09/25 05:41
06/09/25
05:41
Fya-P-Arjucxsawvj Pept 1200
LAB Results
06/08/25 06/09/25 06/09/25
21:21 01:58 05:41
Troponin I 1.210 H* 3.250 H* D 6.060 H* D
06/09/25 06/09/25
11:23 17:58
Troponin I 5.080 H* 4.220 H*
Physical Exam
Constitutional: No acute distress and Comfortable
EENT: Anicteric
Cardiovascular: Rhythm & rate is regular, Pedal edema is absent, Systolic murmur absent and S1S2 is normal
Respiratory: Respiratory effort normal and Lungs clear to auscul.
GI: Soft
Neuro/Psych: AO x 3
Other: Skin (Warm, dry, intact)
Data Reviewed
-
Date of Service: June 10, 2025
EKG: Tracing Personally Visualized and interpreted (Telemetry: Sinus rhythm)
Echo: Tracing Personally Visualized and interpreted (06/09/2025: LVEF 65-70%, no significant valvular disease.)
Medical Tests (PFT, Pathology etc): Discussed with Physician (CT Surgery)
Labs: Labs Reviewed by me
--- NOTE | 2025-06-10 15:18 | W.PN.HOSP.TC ---
Today's Communication/Plan
-
continue current plan of care
Assessment / Plan
Assessment / Plan
Assessment:
Acute NSTEMI
- life threatening diagnosis
- Trop peaked 6.0
- s/p [facility] 06/09: severe multivessel CAD. CABG planned 06/11
- continue ASA/BB
- continue IV heparin, requires intensive monitoring of PTTs
- LDL: 154; high intensity Rosuvastatin
- Echo: LVEF of 65-70% with no significant valvular disease.
Essential HTN
- hold BUBBA/HCTZ
- continue BB
Hx of prolonged QTC - likely from chronic Methadone use
Chronic Methadone use for hx of IVDA
- Prescriber of Methadone is Emigdio - pharmacy verified dose to be 180mg daily
- monitor K and Mag and keep above goal
Recent Dental infection
- Amoxicillin continues; OP dental f/u
Leukocytosis
RLE cellulitis
- continue Amoxicillin, doxycycline - total 10 day course.
R sided solid renal Mass
- CT without renal mass, per Urology likely just atypical/lobular contour of the kidney
Hypokalemia
- replete to >4
Obesity - chronic
- weight loss recommended
DVT ppx: IV Heparin
Code: Full
Anticipated Discharge: > 48 hours
Subjective/Interval History
-
Date of Service: June 10, 2025
resting comfortably, no chest pain or SOB
Objective Data
-
Labs:
Laboratory Results
06/10/25 06/10/25 06/10/25
03:03 10:22 16:30
WBC 12.1 H
Hgb 15.2
Hct 43.8
Plt Count 220
PT 14.5
INR 1.12
APTT 39.1 H 46.7 H Pending
Sodium 138
Potassium 4.4
Chloride 96 L
Carbon Dioxide 29
BUN 33 H
Creatinine 0.9
Glucose 97
Calcium 10.1
Total Bilirubin 1.0
AST 61 H
ALT 47
Alkaline Phosphatase 94
06/10/25
18:00
WBC
Hgb
Hct
Plt Count
PT
INR
APTT Cancelled
Sodium
Potassium
Chloride
Carbon Dioxide
BUN
Creatinine
Glucose
Calcium
Total Bilirubin
AST
ALT
Alkaline Phosphatase
Vital Signs:
Vital Signs
Temp Pulse Resp BP Pulse Ox
97.9 F 73 18 130/87 96
06/10/25 13:03 06/10/25 13:30 06/10/25 06:56 06/10/25 13:02 06/10/25 13:03
I&O
06/09/25 06/10/25 06/11/25
06:59 06:59 06:59
Intake Total 1210 / 1210
Output Total 700 / 700
Balance 510 / 510
Physical Exam
-
General: No Apparent Distress
HEENT: Normocephalic and Atraumatic
Respiratory: Negative Wheezes
Cardiac: Regular Rhythm and S1/S2
GI: Soft
Musculoskeletal: No Edema
Neuro: AO x 3
Psych: Calm
Data Reviewed
-
Total Time Spent with Patient (in minutes): 51
Labs: Labs Reviewed by me
[2025-06-10] MEDS: CRESTOR 40 MG PO (16:37)
[2025-06-10] MEDS: NICODERM TRANSDERMAL 14 MG TRANSDERM (16:43)
[2025-06-10 17:19] LABS: APTT 44.0 Sec (23.4-35.0)
--- NOTE | 2025-06-10 20:25 | PTCARENOTE ---
Received pt @ change of shift. AAOx3, VSS-- NSR on monitor. Heparin gtt running through Rt AC @ 2000 units/hr. Right radial dressing clean, dry, and intact. Area soft to touch, no ecchymosis or hematoma present @ this time. Discussed CVOR prep for
tonight and tomorrow morning. Pt verbalizes understanding. Understands NPO @ midnight. Plan of care ongoing. Call corral within reach.
--- NOTE | 2025-06-10 22:16 | PTCARENOTE ---
CVOR prep completed. Pt clipped arms, neck, stomach, groins and legs. CHG bath completed. Admissions contacted for two bracelets. Sheets changed, bed rails and call corral wiped down. New gown and cardiac leads placed. David Nesbitt (CV PA) assessed
prep work. Discussed plan of care for morning. Pt verbalizes understanding. Call corral within reach.
--- NOTE | 2025-06-10 22:48 | W.PN.CT ---
Assessment / Plan
-
Assessment:
-s/p
-Severe 3v CAD
-NSTEMI (peak trop 6.06)
-[place]
-LVEF 65-70%
-HTN
-HLD
-Class 1 obesity (BMI 41.2)
-Prediabetes (hgb A1C 6.0)
-Recent tooth infection (on Amoxicillin preop)
-hx B/L LE cellulitis
-Current tobacco abuse (2-3 pk/d x 10 yrs)
-Former substance abuse (clean x 8 yrs, on Methadone)
-Acute postop blood loss anemia (stable without blood transfusion)
-Acute postop atelectasis
-Acute postop hypovolemia with subsequent hypervolemia
Plan:
-No major issues overnight. Hemodynamically and neurologically intact
-Pt was successfully extubated yesterday 06/11/25 @
-Weaned off Levophed gtt last night, Remains on insulin gtt per protocol
-Last CI , MVO2 %, U/O since OR mL
-Monitor chest tube drainage: 2meds , L pleural . F/U AM CxR
-Maintain temporary PW, will pull in 1-2 days
-Cont. current meds (ASA, Plavix, Amiodarone, Lopressor, Crestor, Protonix)
-D/C'd [place]/A-line this AM @ 0500
-D/C ashby later today to avoid complications of postop acute urinary retention
-Will transition off insulin gtt today per protocol and transfer to telemetry phase
-Monitor hyponatremia, 133. Fluid restriction, diuresis if BP permits
-Maintain cordis
-Encourage use of IS
-Wean off O2 as tolerated
-OOB into chair/Ambulate
Subjective
-
Date of Service: June 10, 2025
Objective Data
-
Lab Results
06/10/25 03:03
06/10/25 03:03
PT 14.5 Sec (11.4-14.6) 06/10/25 03:03
INR 1.12 06/10/25 03:03
APTT Cancelled 06/10/25 18:00
Vital Signs
Vital Signs
Temp Pulse Resp BP Pulse Ox
98.1 F 76 18 110/68 99
06/10/25 20:25 06/10/25 20:30 06/10/25 20:25 06/10/25 20:22 06/10/25 20:25
CT Intake/Output/Weight
06/10/25 06/10/25 06/11/25
06:59 18:59 06:59
Intake Total 960 / 960
Balance 960 / 960
SaO2: 99
[2025-06-11] VITALS (11 sets, daily range): BP systolic 70–136; BP diastolic 50–92; BMI 41.3
[2025-06-11] MEDS: AMOXIL 500 MG PO (00:07)
[2025-06-11 00:51] LABS: APTT 59.0 Sec (23.4-35.0)
[2025-06-11] MEDS: HEPARIN 25000 UNITS/250 ML IV (01:08)
[2025-06-11] MEDS: MAGNESIUM OXIDE 400 MG PO (06:02)
[2025-06-11] MEDS: BACTROBAN 2% OINTMENT 1 APPLIC NASAL ×2 (06:02→19:28)
[2025-06-11] MEDS: PROTONIX 40 MG PO (06:02)
[2025-06-11] MEDS: METHADONE 100 MG/10 ML 180 MG PO (06:03)
[2025-06-11] MEDS: LOPRESSOR 25 MG PO (06:04)
[2025-06-11 06:10] LABS: Hematocrit 42.1 % (39.0-52.0); Hemoglobin 14.4 g/dL (13.0-18.0); Mean Corp Hgb Conc. 34.2 g/dL (33.0-37.0); Mean Corpuscular Volume 92.1 fL (80.0-94.0); Platelet Count 262 10^3/uL (130-400); Red Cell Dist. Width 13.2 % (11.5-14.5)
[2025-06-11 06:37] LABS: Blood Urea Nitrogen 34 mg/dl (9-20); Calcium 10.0 mg/dl (8.4-10.2); Carbon Dioxide 30 mmol/L (22-30); Chloride 97 mmol/L (98-107); Estimated Creatinine Clearance > 125 ml/min; Glucose 89 mg/dl (70-99); Potassium 3.8 mmol/L (3.5-5.1); Sodium 137 mmol/L (135-145); eGFR > 60.00
--- NOTE | 2025-06-11 07:08 | W.CVOR.SURPR ---
CVOR Surgeon Immed Pre Op
-
I have examined this patient prior to performance of the scheduled procedure.
The patient's condition is unchanged from the time of the dictated/written History and
Physical and the patient is able to undergo the scheduled procedure.
[2025-06-11 07:31] LABS: ACT+ - POC 129 Seconds (82-134)
[2025-06-11 08:02] LABS: Urine Character Clear (Clear)
[2025-06-11] MEDS: AMOXIL PO ×2 (08:44→17:06)
[2025-06-11] MEDS: TOPROL XL PO (08:45)
[2025-06-11] MEDS: NICODERM TRANSDERMAL TRANSDERM (08:45)
[2025-06-11] MEDS: VIBRAMYCIN PO ×2 (08:45→22:05)
[2025-06-11] MEDS: LOW STRENGTH ASPIRIN PO (08:45)
[2025-06-11] MEDS: COLACE PO (08:45)
[2025-06-11] MEDS: LASIX PO (08:45)
[2025-06-11 09:01] LABS: Urine Squamous Cell >30 /LPF (Few)
[2025-06-11 10:14] LABS: ACT+ - POC 495 Seconds (82-134)
--- NOTE | 2025-06-11 10:24 | CON.INTV ---
Consultation
Consultation Request
Date/Time Consultation Requested: 06/11/2025
Date/Time Consultation Performed: 06/11/2025
Medical History
-
Chief Complaint: Chest pain
History of Present Illness:
Patient is a 54-year-old gentleman who originally presented to the hospital on 06/09 with chest pain and pressure. Patient has been having episodic symptoms for some time now. He was diagnosed with acute NSTEMI. Patient was seen by cardiology
service and had a cardiac catheterization done which was suggestive of significant multivessel coronary artery disease. Patient was subsequently evaluated by CT surgery and surgical revascularization was recommended. Patient was taken to the OR,
with plan for admission to cardiovascular ICU. Low Heel Builder consultation was requested for further input.
Past Medical History: Reports HTN and Other (Substance dependence currently on methadone)
Past Surgical History: Reports Other
Social History
Tobacco: Smoker (08/23 ppd)
Alcohol: None
Drug: Former User
Personal: Single
Living: With Family
Employment: Employed
Family History
Family History: Not pertinent
Allergies / Home Medications
Allergies
Allergy/AdvReac Type Severity Reaction Status Date / Time
No Known Allergies Allergy Unverified 06/08/25 22:14
Home Medications
�Medication �Instructions �Recorded �Confirmed �Last Taken �Type
methadone 10 mg/mL oral 180 mg PO DAILY 10/26/18 06/09/25 06/08/25 08:00 History
concentrate (Methadose)
lisinopril 10 1 tab PO DAILY 08/14/23 06/09/25 06/08/25 08:00 History
mg-hydrochlorothiazide 12.5 mg
tablet
metoprolol succinate 100 mg 100 mg PO DAILY 08/14/23 06/09/25 06/08/25 08:00 History
tablet,extended release 24 hr
(Toprol XL)
furosemide 40 mg tablet (Lasix) 40 mg PO DAILY Fluid 06/09/25 06/09/25 06/08/25 08:00 History
Retention/Swelling
Review of Systems
-
Unable to Obtain full review of systems at this time due to: Patient Intubation
Vitals / Labs / Diagnostic Testing
Vital Signs
Temp Pulse Resp BP Pulse Ox
98.0 F 69 16 136/83 97
06/11/25 00:20 06/11/25 06:30 06/11/25 00:20 06/11/25 06:04 06/11/25 00:20
Lab Data
06/11/25 05:24
06/11/25 05:24
Laboratory Results
06/10/25 06/10/25 06/10/25
10:22 16:57 18:00
APTT 46.7 H 44.0 H Cancelled
06/11/25
00:26
APTT 59.0 H
Diagnostic Testing:
Physical Exam
-
HEENT: Normocephalic
Respiratory: Clear
GI: Soft and Non Distended
Neurology: Other (sedated but waking up )
Skin: Warm
General: Comfortable
Assessment
-
54-year-old gentleman with multivessel coronary artery disease, s/p coronary artery bypass graft, left atrial appendage ligation, POD # 0
Titrate off pressors per protocol, MAP 93, off all pressors
ECHO reviewed
Management of chest tubes per primary service, no aor sharma
Intubated/on precedex
Tolerating SBT well, on 5/8 PSV, tidal volumes in high 500, RR 26
91% SpO2
CXR with low lung volumes
Extubate per protocol
Maintain supplement oxygen as needed
Prior h/o smoking, Spirometry normal. No emphysema on CT
Can add nebulizers if needed
Aspiration precautions
Encouraged incentive spirometry, OOB/ambulation/early mobility
Advance diet as tolerated following extubation
GI prophylaxis: Protonix
Monitor critical I/O's
Rey/chest tube output
Hb/platelets postoperatively, mild drift
Trend CBC for now
Can transfuse if indicated for Hb <7, plt <50 in surgical patients
DVT prophylaxis including SCDs
Insulin protocol initiated and ongoing
Transition to SQ/off as indicated per team
Other medical diagnoses:
- Nephrolithiasis
- Colonic diverticulosis
- Hepatic steatosis
- H/o Smoking. No emphysema on CT and normal spirometry
- Chronic methadone use, h/o substance abuse
- Prolonged QTc
- BMI 41.3. At risk of sleep disordered breathing. Extubate to BiPAP. Will benefit from sleep study as out patient.
Critical Care time [61] mins -- The patient is admitted for acute critical illness for the treatment of vital organ failure and/or prevention of further life-threatening conditions. Total care includes time spent in review of history, physical exam,
medications, hemodynamic/ventilator parameters, laboratory data, imaging and discussion with house staff, pharmacy, respiratory therapy, clean room assembler, and nursing
Data:
CT Chest 05/2025: No acute disease of the chest. No evidence of pulmonary embolus.
Spirometry 05/2025: FEV1 3.5 L, 86% of predicted, FVC 4.5 L, 85% of predicted, FEV1/FVC of 78. Normal spirometry without evidence of obstruction or restriction.
LHC 05/2025: 1. Mildly elevated LV filling pressure and no aortic stenosis.
2. Severe multivessel coronary artery disease as described with likely culprit stenosis in the mid-LAD, and possibly also the distal RCA.
ECHO 05/2025: 1. Ejection fraction is 65-70% by Herman's method of discs. No regional wall motion abnormalities.
2. Right ventricular size and systolic function are within normal limits.
3. No significant valvular disease.
4. The aorta, limited to the sinus of valsalva is dilated (4.0cm).
[2025-06-11 10:55] LABS: B.E. - POC 0.4 mmol/L; Glucose - POC 123 mg/dl (70-99); HCO3 - POC 27 mmol/L (21-28); Hematocrit - POC 39 % PCV (42-52); Hemodilution- POC No; Hemoglobin Calculated - POC 13.2; Ionized Calcium - POC 1.22 mmol/L (1.15-1.33); Lactate - POC 0.49 mmol/L (0.36-0.75); O2 Saturation %Calculated-POC 95.5 % (94-98); PCO2 - POC 50 mmHg (35-48); PO2 - POC 84 mmHg (83-108); POC Comment PRE; Potassium - POC 3.5 mmol/L (3.5-5.1); Sodium - POC 141 mmol/L (136-145); Specimen Type - POC Arterial; pH - POC 7.34 (7.35-7.45)
[2025-06-11 11:04] LABS: ACT+ - POC 482 Seconds (82-134)
[2025-06-11 11:28] LABS: B.E. - POC 2.3 mmol/L; Glucose - POC 192 mg/dl (70-99); HCO3 - POC 28 mmol/L (21-28); Hematocrit - POC 32 % PCV (42-52); Hemodilution- POC Yes; Hemoglobin Calculated - POC 10.7; Ionized Calcium - POC 1.06 mmol/L (1.15-1.33); Lactate - POC 1.18 mmol/L (0.36-0.75); O2 Saturation %Calculated-POC 99.3 % (94-98); PCO2 - POC 48 mmHg (35-48); PO2 - POC 154 mmHg (83-108); POC Comment CPB; Potassium - POC 5.1 mmol/L (3.5-5.1); Sodium - POC 136 mmol/L (136-145); Specimen Type - POC Arterial; pH - POC 7.38 (7.35-7.45)
[2025-06-11 11:37] LABS: ACT+ - POC 518 Seconds (82-134)
[2025-06-11 12:03] LABS: B.E. - POC 2.7 mmol/L; Glucose - POC 198 mg/dl (70-99); HCO3 - POC 28 mmol/L (21-28); Hematocrit - POC 32 % PCV (42-52); Hemodilution- POC Yes; Hemoglobin Calculated - POC 10.9; Ionized Calcium - POC 1.10 mmol/L (1.15-1.33); Lactate - POC 1.20 mmol/L (0.36-0.75); O2 Saturation %Calculated-POC 99.9 % (94-98); PCO2 - POC 44 mmHg (35-48); PO2 - POC 319 mmHg (83-108); POC Comment CPB; Potassium - POC 4.5 mmol/L (3.5-5.1); Sodium - POC 138 mmol/L (136-145); Specimen Type - POC Arterial; pH - POC 7.41 (7.35-7.45)
[2025-06-11 12:09] LABS: ACT+ - POC 517 Seconds (82-134)
[2025-06-11 12:27] LABS: B.E. - POC 2.4 mmol/L; Glucose - POC 186 mg/dl (70-99); HCO3 - POC 26 mmol/L (21-28); Hematocrit - POC 31 % PCV (42-52); Hemodilution- POC Yes; Hemoglobin Calculated - POC 10.6; Ionized Calcium - POC 1.09 mmol/L (1.15-1.33); Lactate - POC 1.34 mmol/L (0.36-0.75); O2 Saturation %Calculated-POC 99.8 % (94-98); PCO2 - POC 36 mmHg (35-48); PO2 - POC 208 mmHg (83-108); POC Comment CPB; Potassium - POC 4.2 mmol/L (3.5-5.1); Sodium - POC 136 mmol/L (136-145); Specimen Type - POC Arterial; pH - POC 7.46 (7.35-7.45)
[2025-06-11 12:32] LABS: ACT+ - POC 448 Seconds (82-134)
[2025-06-11 12:51] LABS: ACT+ - POC 476 Seconds (82-134)
[2025-06-11 12:59] LABS: B.E. - POC 1.5 mmol/L; Glucose - POC 177 mg/dl (70-99); HCO3 - POC 25 mmol/L (21-28); Hematocrit - POC 30 % PCV (42-52); Hemodilution- POC Yes; Hemoglobin Calculated - POC 10.3; Ionized Calcium - POC 1.07 mmol/L (1.15-1.33); Lactate - POC 1.44 mmol/L (0.36-0.75); O2 Saturation %Calculated-POC 99.9 % (94-98); PCO2 - POC 34 mmHg (35-48); PO2 - POC 244 mmHg (83-108); POC Comment WARM; Potassium - POC 4.4 mmol/L (3.5-5.1); Sodium - POC 136 mmol/L (136-145); Specimen Type - POC Arterial; pH - POC 7.48 (7.35-7.45)
[2025-06-11 13:03] LABS: ACT+ - POC 551 Seconds (82-134)
[2025-06-11 13:49] LABS: B.E. - POC 2.7 mmol/L; Glucose - POC 198 mg/dl (70-99); HCO3 - POC 27 mmol/L (21-28); Hematocrit - POC 32 % PCV (42-52); Hemodilution- POC Yes; Hemoglobin Calculated - POC 10.8; Ionized Calcium - POC 1.05 mmol/L (1.15-1.33); Lactate - POC 1.71 mmol/L (0.36-0.75); O2 Saturation %Calculated-POC 99.9 % (94-98); PCO2 - POC 37 mmHg (35-48); PO2 - POC 253 mmHg (83-108); POC Comment CPB; Potassium - POC 4.1 mmol/L (3.5-5.1); Sodium - POC 137 mmol/L (136-145); Specimen Type - POC Arterial; pH - POC 7.46 (7.35-7.45)
[2025-06-11 13:53] LABS: ACT+ - POC 156 Seconds (82-134)
[2025-06-11 14:02] LABS: B.E. - POC -2.5 mmol/L; Glucose - POC 174 mg/dl (70-99); HCO3 - POC 23 mmol/L (21-28); Hematocrit - POC 31 % PCV (42-52); Hemodilution- POC Yes; Hemoglobin Calculated - POC 10.7; Ionized Calcium - POC 1.14 mmol/L (1.15-1.33); Lactate - POC 2.72 mmol/L (0.36-0.75); O2 Saturation %Calculated-POC 98.3 % (94-98); PCO2 - POC 43 mmHg (35-48); PO2 - POC 118 mmHg (83-108); POC Comment POST; Potassium - POC 3.6 mmol/L (3.5-5.1); Sodium - POC 140 mmol/L (136-145); Specimen Type - POC Arterial; pH - POC 7.34 (7.35-7.45)
[2025-06-11 14:04] LABS: ACT+ - POC 126 Seconds (82-134)
[2025-06-11] MEDS: NOVOLOG FLEXPEN SC ×2 (14:34→17:35)
--- NOTE | 2025-06-11 15:57 | W.PN.CT.SURG ---
CT Surgery Operative Note
-
CARDIAC SURGERY OPERATIVE REPORT
Preoperative Diagnosis: Multivessel Coronary Artery Disease with NSTEMI
Postoperative Diagnosis: Same
Procedure(s) Performed:
1. Standard Sternotomy with Aortic and Right Atrial Cannulation
2. Internal Mammary Artery Harvesting, Left
3. Coronary artery bypass grafting x 5 (In situ RAE to LAD, Ao to radial artery to ramus intermedius, Ao to RSVG to diagonal, Ao to RSVG to OM 2, Ao to RSVG to PDA)
4. Endoscopic vein harvesting of left saphenous vein
5. Endoscopic harvest of left radial artery
6. Left atrial appendage ligation using 40mm AtriClip device
7. Transesophageal echocardiography
8. Placement of Temporary Ventricular Pacing Wires
Date of Surgery: 06/11/2025
Comorbidities:
1. Morbidly obese
2. Hypertension
3. Current tobacco use
4. Mild COPD
Attending Surgeon: Eunice Yu MD, MPH
Assistants: Bárbara Denney PA-C; Farooq Mondragon PA-C (present and necessary to access services assistant, endoscopic vein harvest, retraction, suction, exposure, suture management, and wound closure under my direction)
Anesthesiology: David Metz MD and Ritika Goode CRNA
Scrub and Circulating RNs: Lavern Murphy RN, Mary High RN
[place] Drawer: Carlos Parker CCP
Anesthesia: GETA
EBL: per perfusion records
Products: None
CPB Time: 170 minutes
Aortic Cross Clamp Time: 150 minutes
Indication(s) for Procedures: 54-year-old male with multiple months of angina with escalating symptoms presented to emergency department with NSTEMI. Left heart cath showing multivessel coronary artery disease.
Conduit(s) Quality:
RAE -relatively small vessel but healthy with excellent flow
Radial artery -good-sized vessel with no calcified disease
RSVG -uniform in size tapers towards the end but distends well
Target(s) Quality:
PDA -small vessel that passes a 1 mm probe both distally and proximally, free of disease with good lumen. Through cardioplegia line flowing 45 cc at 80 mmHg. On flow probe 41 cc/min and PI 6.
OM2 -the lateral wall had multiple OM branches with OM 2 being the largest and having multiple branch points within it as well. This was slightly intramyocardial and easily freed to more proximal area where the lumen was larger. At the target site
it was free of disease easily passing a 1 mm probe. Through cardioplegia line flowing 20 cc at 80 mmHg. On flow probe 27 cc/min and PI 3.8.
Diag -moderate size vessel free of disease. 3 cardioplegia line flowing 35 cc at 80 mmHg. On flow probe 32 cc/min and PI 5.
RI -large vessel with intramyocardial course, able to dissect free in the mid to proximal vessel which is free of disease and had large lumen. This was a good target site for radial artery, easily passes 1 mm probe distally and proximally. Flow
probe 63 cc/min and PI 3.2.
LAD -large size vessel in the interventricular groove free of disease in the mid to distal area that we chose for anastomosis. Great lumen size that easily passes 1 mm probe. On flow probe 36 cc/min PI of 1.9.
Findings: Preop PHYLICIA shows normal function with EF 55%, no regional wall motion abnormalities and trace to mild MR with no other valvular disease. The heart was quite large but overall moving well and no excess of epicardial adipose tissue. At the
conclusion of the case he was conducting on his own in normal sinus rhythm and PHYLICIA showing function at baseline at 55% with no new regional wall motion abnormalities and no new valvular findings. The RAE was harvested in a skeletonized fashion.
Following bypass grafting, test dose cardioplegia was given down each distal and confirmed patency and hemostasis. Each distal was probed both proximally and distally to confirm disease and patency, respectively.
Description of Procedure: The patient was taken to the operating room. Their identity and procedure to be performed were verified and they were positioned supine on the operating table. Induction via general anesthesia with endotracheal intubation
was performed and central venous access and arterial monitoring were inserted. A preoperative transesophageal echocardiogram was performed to assess cardiac function and valvular function. The patient was then prepped and draped from chin to feet in
a sterile fashion. A preoperative time-out was performed with all members of the team present. A midline chest incision was performed along with median sternotomy. Simultaneous endoscopic access of the left lower extremity for saphenous vein harvest
and left upper extremity for endoscopic radial artery harvest was obtained along with administration of an initial 5,000 units of IV heparin. A RulTract sternal retractor was positioned to exposure the left internal mammary bed. The mammary was
harvested and found to have good flow. A medium clip was applied to the distal end of the mammary after dividing it. It was wrapped in a papaverine soaked RayTec and replaced back into the left hemithorax. The RulTract was exchanged for a median
sternal retractor. The innominate vein was isolated. Full heparinization was given (a total of 95,000 units). We created a pericardial well. The aortic cannulation site was chosen where it was soft, pliable, and free of calcium. Cannulation was
performed with an arterial cannula in the ascending aorta and a triple-stage venous cannula through the right atrial appendage. The arterial cannula line had an appropriate bounce and correlating pressures with test dosing. Next, a root
vent/antegrade cannula was inserted into the ascending aorta. The ACT was confirmed to be over 400 and retrograde autologous priming was performed before commencing cardiopulmonary bypass. The pulmonary artery was away from the aorta to
facilitate a clamp site. The aortic cross-clamp was placed after decreasing the flow on the bypass and mean arterial pressure. A total of 1.2L initial dose of antegrade Del-Nido cardioplegia solution was given and planned for re-dosing every 75
minutes as necessary. There was rapid electro-mechanical arrest of the heart at 425 cc of cardioplegia. The left ventricle was observed for distention on echocardiogram and manual palpation. Cold slush was placed into a sponge and topically on the
RV while we systemically cooled to 34 degrees centigrade.
I positioned the heart to expose the left atrial appendage and using visual estimate which shows a 40mm AtriClip device, this was placed at the base of the left atrial appendage and deployed without complications. I positioned the heart to expose
the distal right coronary at the posterior descending artery. A [place] blade was used to expose the coronary and perform the arteriotomy. Coronary Oswald scissors were used to enlarge the incision. The saphenous vein was trimmed and beveled to an
appropriate size. The distal anastomosis was performed using 7-0 prolene in an end-to-side fashion. Antegrade cardioplegia was administered into the graft. Appropriate hemostasis and flow were confirmed. The graft was measured for length to the
aorta and cut. A suitable site on the second obtuse marginal was chosen. We dissected from its intramyocardial course and prepared the distal target in a similar fashion. An end-to-side anastomosis was created with a 7-0 prolene. Antegrade
cardioplegia was administered into the graft. Appropriate hemostasis and flow were confirmed. The graft was measured for length to the aorta and cut. A suitable site on the large ramus intermedius was chosen, we had to find this in the more proximal
area of the vessel as it had a mostly intramyocardial course from early on. We dissected and prepared the distal target in a similar fashion. An end-to-side anastomosis was created with a 7-0 prolene and the radial artery graft. The graft was
measured for length to the aorta and cut. A suitable site on the largest diagonal (this. To be the first diagonal) was chosen. We dissected and prepared the distal target in a similar fashion. An end-to-side anastomosis was created with a 7-0
prolene. Antegrade cardioplegia was administered into the graft. Appropriate hemostasis and flow were confirmed. The graft was measured for length to the aorta and cut. A suitable target on the distal left anterior descending was identified. We
dissected and prepared the distal target in a similar fashion. We retrieved the RAE from the chest and created a pericardial opening while being cognizant of the phrenic nerve to facilitate the course of the mammary. The distal end of the mammary
was prepped and beveled to size. We verified orientation and length of the THEODORA and found brisk flow. An end-to-side anastomosis was created with a 7-0 prolene. We temporarily released the bulldog clamp on the mammary to inspect flow. Perfusion to
the LAD territory was visualized and hemostasis was confirmed. The bull clamp was replaced on the mammary. The heart was filled and the root was distended with antegrade cardioplegia to make final assessment of graft length and orientation. We
created for aortotomies using a #11 blade then a 4.0mm aortic punch. The proximal anastomoses were created in an end-to-side fashion using 6-0 prolene for the vein grafts and 7-0 Prolene for the radial artery graft. At the the same time, we
re-warmed to 36.5 degrees centigrade. The bulldog clamp was removed from the mammary. Temporary bipolar ventricular pacing wires were placed on the base of the right ventricle. The patient was placed in a Trendelenburg position and flows on bypass
were lowered. The aortic cross clamp was removed and flows were slowly brought back up. All bypass grafts were inspected and were free from kinking or twisting. The distal and proximal anastomoses appeared hemostatic. Once transesophageal
echocardiography appeared satisfactory for de-airing, the flows were temporarily lowered for root vent removal. After verifying acceptable parameters, we initiated weaning from cardiopulmonary bypass. Once we were off cardiopulmonary bypass, the
venous cannula was clamped and removed. A test dose of protamine was administered and the patient was monitored for any adverse reaction before resuming protamine. Once half of the protamine dose was delivered, pump suckers were turned off and the
systolic blood pressure was lowered for aortic decannulation. The aortic cannula was removed and pursestrings were tied down. All cannulation sites were oversewn with a 4-0 prolene. The mammary bed was inspected and hemostasis was confirmed. Once
the mediastinum was hemostatic, 19Fr Osmar drains were placed in the left and right pleural cavities and two 24Fr Osmar drains were placed within the pericardium. The sternum was approximated with 1 #7 single and 3 #8 double stainless steel wires in
addition to 3 titanium plates. Fascia was approximated with #1 vicryl suture. The subcutaneous, dermis and epidermis were closed in layers in a running fashion. The skin wound was cleansed and dressed.
All instrument, sponge, and needle counts were confirmed to be correct x 2 at the end of the operation. The patient was transferred to the cardiac intensive care unit in critical but stable condition.
I, Dr. Eunice Yu, was present, scrubbed for, and performed all critical elements of this procedure.
Eunice Yu MD, MPH
Cardiothoracic Surgeon
[facility]
This operative dictation was created using the [employer] dictation system. Please excuse any grammatical, typographical, or 'sound alike' errors
[2025-06-11 16:09] LABS: Glucose - Point of Care 179 mg/dl (70-99)
[2025-06-11 16:20] LABS: B.E. 0.1 mmol/L; HCO3 26.4 mmol/L (21-28); O2 Saturation % 95.5 % (94-98); PCO2 49 mmHg (35-48); PO2 78 mmHg (83-108); Potassium 4.9 mMOL/L (3.5-5.1); Sodium 134 mMOL/L (136-145)
[2025-06-11 16:31] LABS: Hematocrit 31.1 % (39.0-52.0); Hemoglobin 11.2 g/dL (13.0-18.0); Platelet Count 252 10^3/uL (130-400)
[2025-06-11 16:33] LABS: INR 1.34; PT 16.7 Sec (11.4-14.6)
[2025-06-11 16:34] LABS: APTT 31.6 Sec (23.4-35.0)
--- NOTE | 2025-06-11 16:36 | PTCARENOTE ---
Assumed care of patient from CVOR . Intubated and sedated on the vent. 'Settings per anesthesia. SIMV 60% 16 500 5 peep 8 pulse ox 94%. SR on monitor. Epicardial wire to back up of VVI . No pacing noted at present. RT IJ cordis with
[place], RT radial A line transducing. Lines leveled, recalibrated and flushed. Chest tubes x 4 to - 20 cm suction. No air leak or crepitus noted. Abdomen obese with hypoactive bowel sounds t/o. Rey draining clear ray urine. DP pules
palpable. Lt ulnar pulse palpable. Surgical cites c,d,i. Drips infusing on hand off as follows: insulin, levophed, precedex and cardene
[2025-06-11 16:37] LABS: Blood Urea Nitrogen 30 mg/dl (9-20); Estimated Creatinine Clearance > 125 ml/min; Glucose 155 mg/dl (70-99); Magnesium 3.2 mg/dl (1.6-2.3)
--- NOTE | 2025-06-11 16:47 | PTCARENOTE ---
Over breathing ventilator but remains drowsy. Vent weaned down to 40% and pt placed on CPAP trial per CT CRYPTOLOGIC SUPERVISOR. Will obtain labs as per protocol
[2025-06-11] MEDS: DILAUDID 0.5 MG IV (17:04)
[2025-06-11] MEDS: PACERONE PO ×2 (17:06→21:18)
[2025-06-11] MEDS: CALCIUM GLUCONATE 100 IV ×2 (17:06→22:16)
[2025-06-11] MEDS: ANCEF 10 IV ×2 (17:06)
[2025-06-11] MEDS: NEURONTIN PO ×2 (17:06→21:18)
[2025-06-11] MEDS: NSS 500 IV (17:07)
[2025-06-11 17:10] LABS: Glucose - Point of Care 194 mg/dl (70-99)
[2025-06-11 17:22] LABS: B.E. - POC 0.0 mmol/L; Blood Urea Nitrogen - POC 31 mg/dl (3-120); Chloride - POC 102 mmol/L (96-111); Creatinine - POC 0.92 mg/dl (0.3-1.0); Glucose - POC 201 mg/dl (70-99); HCO3 - POC 25 mmol/L (21-28); Hematocrit - POC 35 % PCV (42-52); Hemodilution- POC Yes; Hemoglobin Calculated - POC 11.8; Ionized Calcium - POC 1.28 mmol/L (1.15-1.33); Lactate - POC 2.55 mmol/L (0.36-0.75); O2 Saturation %Calculated-POC 84.0 % (94-98); PCO2 - POC 40 mmHg (35-48); PO2 - POC 49 mmHg (83-108); Potassium - POC 4.3 mmol/L (3.5-5.1); Sodium - POC 137 mmol/L (136-145); Specimen Type - POC Arterial; pH - POC 7.40 (7.35-7.45)
--- NOTE | 2025-06-11 17:23 | PTCARENOTE ---
While giving pt CHG cloth bath, pt awoke abruptly attempting to kick staff and pull at tubes. complaining that he cannot breath attempt to calm patient not very effective. EPOC obtained. Discussed with CT surgery. Order to extubate to BIPAP
obtained.
[2025-06-11] MEDS: OFIRMEV 100 IV (17:27)
[2025-06-11] MEDS: PRECEDEX 100 IV (17:34)
[2025-06-11] MEDS: CRESTOR PO (17:35)
--- NOTE | 2025-06-11 17:37 | PTCARENOTE ---
While giving pt CHG cloth bath, pt awoke abruptly attempting to kick staff and pull at tubes. complaining that he cannot breath attempt to calm patient not very effective. EPOC obtained. Discussed with CT surgery. Pt calmed down and ''placed
back on SIMV . 'ETT placement changed to 21.
[2025-06-11] MEDS: VENTOLIN NEBULES 2.5 MG INH (17:42)
[2025-06-11] MEDS: ZOFRAN 4 MG IV (17:59)
[2025-06-11 18:04] LABS: Glucose - Point of Care 176 mg/dl (70-99)
[2025-06-11] MEDS: DIPRIVAN 100 IV ×2 (18:23→21:23)
[2025-06-11] MEDS: LASIX 40 MG IV (18:23)
[2025-06-11 18:50] LABS: Glucose - Point of Care 151 mg/dl (70-99)
[2025-06-11] MEDS: SENOKOT PO (19:28)
--- NOTE | 2025-06-11 20:25 | PTCARENOTE ---
Assumed care of pt from elier RN. Report at bedside. Pt intubated/sedated s/p CVOR. Propofol infusing. CPOT 0. RASS -2. Pupils 3 mm, equal / reactive. SR on the tele monitor. HR 60s. Temporary epicardial v-wire intact; settings VVI 30/15/0.8. BPs
90-110s/60s. Levo titrated off. Trace generalized edema. +1 B/L LE edema. Weakly palpable DP pulses. Right radial / left ulnar pulse palpable. Pt w/ ETT #8, 21cm @ right lip. Per CT MOMO, vent settings changed by respiratory at the bedside @2014.
Vent currently AC; 100% FiO2, tidal volume 550, rate 16, peep 10, pressure support 5. POX 97%. Lung sounds diminished in B/L base. Mediastinal CTx2 and R/L pleural CT to -20 suction, no airleaks noted, and output as documented. Abdomen round.
Hypoactive BS. Rey catheter intact and draining yellow urine. All surgical sites stable at this time. Right radial a-line, right IJ cordis w/ CVP, and PIV x1 intact. All lines leveled, zeroed, and flushed. 4hr labs retimed w/ next ABG. Glycemic
protocol followed. Current drips; propofol, insulin, and Cardene (for radial graft). See worklist for full nursing assessment and interventions.
[2025-06-11 20:50] LABS: Glucose - Point of Care 140 mg/dl (70-99)
[2025-06-11 20:58] LABS: B.E. 2.1 mmol/L; HCO3 27.3 mmol/L (21-28); O2 Saturation % 97.3 % (94-98); PCO2 44 mmHg (35-48); PO2 92 mmHg (83-108); Potassium 4.4 mMOL/L (3.5-5.1)
[2025-06-11 21:03] LABS: Hematocrit 29.8 % (39.0-52.0); Hemoglobin 10.7 g/dL (13.0-18.0); Platelet Count 193 10^3/uL (130-400)
[2025-06-11 21:14] LABS: Triglycerides 135 mg/dl (10-149)
[2025-06-11] MEDS: ASPIRIN 300 MG RECTAL (21:19)
[2025-06-11] MEDS: ANCEF 5 IV (21:20)
[2025-06-11] MEDS: CARDIZEM 125 IV (22:32)
[2025-06-11 22:56] LABS: Glucose - Point of Care 117 mg/dl (70-99)
[2025-06-12] VITALS (28 sets, daily range): BP systolic 90–151; BP diastolic 49–95; PULSE 77; O2SAT 94–96; BMI 42.0
[2025-06-12] MEDS: AMOXIL PO (00:01)
[2025-06-12 00:23] LABS: B.E. 3.0 mmol/L; HCO3 27.9 mmol/L (21-28); O2 Saturation % 98.2 % (94-98); PCO2 43 mmHg (35-48); PO2 135 mmHg (83-108); Potassium 4.5 mMOL/L (3.5-5.1)
[2025-06-12] MEDS: DILAUDID 0.25 MG IV ×2 (00:39→08:11)
--- NOTE | 2025-06-12 00:52 | PTCARENOTE ---
Pt reassessed. Pt remains intubated. Propofol infusing. Dilaudid for pain, see MAR. SR w/ 1st degree AVB on the tele monitor. HR 60s. Temporary epicardial pacer settings unchanged. BP 90-110s/50-60s. CVP ~12. ETT placement unchanged. Remains on AC.
Vent settings as documented, repeat ABGs as ordered. POX 98-100%. CTx4 assessment unchanged, outputs as documented. Rey catheter intact and draining yellow urine. All surgical sites stable. BUBBA wrap on left leg / left forearm intact, no drainage.
All lines leveled/zeroed/flushed. Cardene switched to Cardizem @[address] MOMO d/t possible shunting. Glycemic protocol followed. Current drips; Cardizem, propofol, and insulin.
[2025-06-12 01:06] LABS: Glucose - Point of Care 135 mg/dl (70-99)
[2025-06-12] MEDS: DIPRIVAN 100 IV ×2 (01:07→05:11)
--- NOTE | 2025-06-12 01:11 | W.PN.CT ---
Today's Communication / Plan
-
Plan:
-No major issues overnight. Hemodynamically and neurologically intact
-Pt became agitated postop with respiratory failure/hypoxemia requiring ventilator dependence overnight with PEEP as high as 10 and FIO2 as high as 100%
-Pt was successfully extubated this morning 06/12/25 @ 0610
-Appeared to be shunting on Cardene gtt, transitioned to Cardizem gtt and did well, currently on Cardizem gtt @ 1, Remains on insulin gtt per protocol
-Will transition off Cardizem gtt to PO Norvasc shortly
-U/O since OR 1330 mL
-Postop EKG c/w acute pericarditis, + rub, not in excruciating pain
-Monitor chest tube drainage: 2meds 110/220, R/L pleural 85/170. AM CXR looks good with mild bibasilar atelectasis. F/u official report
-Maintain temporary PW
-Cont. current meds (ASA, Plavix, Amiodarone, Lopressor, Crestor, Protonix, Norvasc)
-Will D/C SLIC and A-line this AM
-Will D/C ashby later today
-Will transition off insulin gtt today per protocol and transfer to telemetry phase
-Maintain cordis
-Encourage use of IS
-Wean off O2 as tolerated
-OOB into chair/Ambulate
Assessment / Plan
-
Assessment:
-S/P Standard Sternotomy/Coronary artery bypass grafting x 5 (In situ RAE to LAD, Ao to radial artery to ramus intermedius, Ao to RSVG to diagonal, Ao to RSVG to OM 2, Ao to RSVG to PDA)/Endoscopic harvest of left radial artery/ Endoscopic vein
harvesting of left saphenous vein/ Left atrial appendage ligation using 40mm AtriClip device, by Dr. Yu, 06/11/25, pod#1
-Severe 3v CAD
-NSTEMI (peak trop 6.06)
-[place]
-LVEF 65-70%
-HTN
-HLD
-Class 1 obesity (BMI 41.2)
-Prediabetes (hgb A1C 6.0)
-Recent tooth infection (on Amoxicillin preop)
-hx B/L LE cellulitis
-Current tobacco abuse (2-3 pk/d x 10 yrs)
-Mild COPD
-Former substance abuse (clean x 8 yrs, on Methadone)
-Acute postop blood loss anemia (stable without blood transfusion)
-Acute postop respiratory distress/hypoxemia
-Acute postop VDRF
-Acute postop atelectasis
-Acute postop hypovolemia with subsequent hypervolemia
-Acute postop pericarditis, + rub
Discussed patient care with: Cardiology, Nursing, Respiratory Therapy, Pharmacy and Care Team
Subjective
Procedure
-S/P Standard Sternotomy/Coronary artery bypass grafting x 5 (In situ RAE to LAD, Ao to radial artery to ramus intermedius, Ao to RSVG to diagonal, Ao to RSVG to OM 2, Ao to RSVG to PDA)/Endoscopic harvest of left radial artery/ Endoscopic vein
harvesting of left saphenous vein/ Left atrial appendage ligation using 40mm AtriClip device, by Dr. Yu, 06/11/25, pod#1
-
Date of Service: June 12, 2025
Pt c/o incisional pain, otherwise feels well
Objective Data
-
PT 16.7 Sec (11.4-14.6) H 06/11/25 16:07
INR 1.34 06/11/25 16:07
APTT 31.6 Sec (23.4-35.0) 06/11/25 16:07
Vital Signs
Vital Signs
Temp Pulse Resp BP Pulse Ox
99.6 F 67 16 92/53 98
06/12/25 01:00 06/12/25 01:00 06/12/25 01:00 06/12/25 01:00 06/12/25 01:00
CT Intake/Output/Weight
06/11/25 06/11/25 06/12/25
06:59 18:59 06:59
Intake Total 288.3 / 615.5 327.2 / 615.5
Output Total 450 / 1295 845 / 1295
Balance -161.7 / -679.5 -517.8 / -679.5
SaO2: 98
Physical Exam
-
General: Awake, Oriented and AOx3
Cardiovascular: Regular rate & rhythm, No Murmurs, No Rub and No Gallop
Respiratory: Decreased Breath Sounds (at bases, otherwise clear)
Sternum: Stable
Incision: Clean, Dry, Intact and Dressing Intact
Extremities: Other (+trace edema)
Data Reviewed
-
Lab Results: Results Reviewed
Medications: Active Meds Reviewed
Chest X-Ray: Report Reviewed and Image Reviewed
ECG: Report Reviewed and Image Reviewed
[2025-06-12 01:20] LABS: B.E. 2.6 mmol/L; HCO3 27.2 mmol/L (21-28); O2 Saturation % 98.0 % (94-98); PCO2 41 mmHg (35-48); PO2 96 mmHg (83-108)
[2025-06-12 02:13] LABS: Glucose - Point of Care 122 mg/dl (70-99)
[2025-06-12 02:28] LABS: B.E. 1.7 mmol/L; HCO3 26.6 mmol/L (21-28); O2 Saturation % 98.2 % (94-98); PCO2 42 mmHg (35-48); PO2 141 mmHg (83-108); Potassium 4.3 mMOL/L (3.5-5.1)
[2025-06-12 03:10] LABS: Glucose - Point of Care 141 mg/dl (70-99)
[2025-06-12 03:18] LABS: B.E. 2.4 mmol/L; HCO3 27.2 mmol/L (21-28); O2 Saturation % 98.2 % (94-98); PCO2 42 mmHg (35-48); PO2 105 mmHg (83-108)
[2025-06-12 03:21] LABS: Hematocrit 30.3 % (39.0-52.0); Hemoglobin 10.6 g/dL (13.0-18.0); Mean Corp Hgb Conc. 35.0 g/dL (33.0-37.0); Mean Corpuscular Volume 88.1 fL (80.0-94.0); Platelet Count 213 10^3/uL (130-400); Red Cell Dist. Width 12.9 % (11.5-14.5)
[2025-06-12 03:38] LABS: Blood Urea Nitrogen 34 mg/dl (9-20); Calcium 9.0 mg/dl (8.4-10.2); Carbon Dioxide 27 mmol/L (22-30); Chloride 102 mmol/L (98-107); Estimated Creatinine Clearance > 125 ml/min; Glucose 121 mg/dl (70-99); Magnesium 2.7 mg/dl (1.6-2.3); Potassium 4.4 mmol/L (3.5-5.1); Sodium 136 mmol/L (135-145); eGFR > 60.00
--- NOTE | 2025-06-12 03:40 | PTCARENOTE ---
Pt reassessed. Pt remains intubated. Propofol infusing. Pt more awake. DAVIS. Follows simple commands. Breathing over vent. Ofirmev for pain, see DAVIS. SR w/ 1st degree AVB on the tele monitor. HR 60s. Temporary epicardial pacer settings unchanged. BP
90-120s/50-60s. Cuff BP < A-line BP. Per CT MOMO, go by a-line cuff. CVP ~14. ETT placement unchanged. Remains on AC. Vent settings as documented, repeat ABGs as ordered. POX 96-98%. Suctioned as needed. CTx4 assessment unchanged, outputs as
documented. Rey catheter intact and draining yellow urine. All surgical sites stable. BUBBA wrap on left leg / left forearm intact, no drainage. All lines leveled/zeroed/flushed. Glycemic protocol followed. Current drips; Cardizem, propofol, and
insulin. Labs sent. EKG completed.
[2025-06-12] MEDS: OFIRMEV 100 IV (03:47)
[2025-06-12 04:12] LABS: Glucose - Point of Care 126 mg/dl (70-99)
[2025-06-12] MEDS: NOVOLIN R INSULIN INFUSION 100 IV (04:14)
[2025-06-12 05:02] LABS: Glucose - Point of Care 134 mg/dl (70-99)
[2025-06-12 05:09] LABS: B.E. 1.9 mmol/L; HCO3 26.6 mmol/L (21-28); O2 Saturation % 96.1 % (94-98); PCO2 41 mmHg (35-48); PO2 75 mmHg (83-108)
[2025-06-12] MEDS: ANCEF 5 IV ×2 (05:10→13:15)
[2025-06-12 05:56] LABS: B.E. 2.0 mmol/L; HCO3 26.5 mmol/L (21-28); O2 Saturation % 95.4 % (94-98); PCO2 40 mmHg (35-48); PO2 74 mmHg (83-108)
[2025-06-12 06:00] LABS: Glucose - Point of Care 148 mg/dl (70-99)
--- NOTE | 2025-06-12 06:10 | RESPNOTE ---
pt extubated to 6 LPM NC without incident. - stridor, + vocalization
[2025-06-12] MEDS: VENTOLIN NEBULES 2.5 MG INH (06:16)
--- NOTE | 2025-06-12 06:23 | PTCARENOTE ---
Pt placed on CPAP ~0518. ABG sent. Per CT MOMO, okay to extubate. Respiratory at the bedside. Pt extubated to 6 L NC @0610. AAOx3. Appropriate. IS 1500. Nebulizer tx started. Pt updated w/ plan. Sternal precautions re-enforced. Call corral within
reach.
--- NOTE | 2025-06-12 07:49 | W.PN.ANS.POP ---
Anesthesia Post Operative
- Anesthesia Post Op Note
Vital Signs Stable-See Nursing Note: Yes
Airway Patent: Yes (on nasal cannula)
Adequate Pain Control: Yes
Change in Mental Status: No
Current Postoperative Nausea & Vomiting: No
Anesthesia Complications: No
General Anesthetic Recall: No
Unplanned Admission: No
Post Op Hydration Adequate: Yes
[2025-06-12] MEDS: DUONEB 3 ML INH ×4 (08:00→19:21)
--- NOTE | 2025-06-12 08:00 | PTCARENOTE ---
pt received from previous RN, oriented in bed. SR w/ 1st degree AVB and prolonged QT on the monitor, HR 70s. V wire in place, VVI 30/15. CVP ~10. SBP 130-140s. FEED MILL MANAGER aware. weakly palpable DPs, palpable R radial and L ulnar. trace generalized anasarca.
Cardizem gtt running as ordered. pt on 7LNC, 90-95% POX. lungs diminished. IS encouraged. CTx4, no air leak or crepitus noted. pt abdomen round, s/n, denies n/v. tolerating sips of water. hypoactive BS, pt states +flatus. Rey in place, cloudy
yellow urine, FEED MILL MANAGER aware. sternal incision ADARSH, approximated, stitch at top of incision. LUE BUBBA bandage in place. chest tube dressing c/d/i. L groin/thigh puncture BLUE PRINT CONTROL CLERK. LLE BUBBA bandage in place. preadmission cellulitis on LE. RIJ cordis w/ slick
maintained. R radial Elvi flushed, zeroed, and calibrated. PIV. insulin gtt running as ordered. see worklist for VS, I&O, and assessment.
[2025-06-12] MEDS: NEURONTIN 100 MG PO ×3 (08:10→23:50)
[2025-06-12] MEDS: PACERONE 200 MG PO ×3 (08:10→23:50)
[2025-06-12] MEDS: VIBRAMYCIN 100 MG PO ×2 (08:10→21:26)
[2025-06-12 08:11] LABS: Glucose - Point of Care 138 mg/dl (70-99)
[2025-06-12] MEDS: PLAVIX 75 MG PO (08:11)
[2025-06-12] MEDS: NORVASC 2.5 MG PO (08:11)
[2025-06-12] MEDS: PROTONIX 40 MG PO (08:11)
[2025-06-12] MEDS: SENOKOT 8.6 MG PO ×2 (08:11→21:26)
[2025-06-12] MEDS: LOPRESSOR 12.5 MG PO (08:11)
[2025-06-12] MEDS: LOW STRENGTH ASPIRIN 81 MG PO (08:11)
[2025-06-12] MEDS: BACTROBAN 2% OINTMENT 1 APPLIC NASAL ×2 (08:12→21:26)
[2025-06-12] MEDS: NICODERM TRANSDERMAL 14 MG TRANSDERM (08:12)
--- NOTE | 2025-06-12 08:20 | W.PN.CD ---
Today's Communication / Plan
-
diuresis
routine post op management
Impression / Plan
-
54-year-old male with hypertension, chronic continued cigarette use, previous drug/alcohol abuse (on maintenance methadone for the past 8 years), and obesity presenting with chest pain and shortness of breath. Cardiac enzymes increasing, consistent
with an NSTEMI. Found to have severe multivessel CAD on cardiac catheterization; CABG required.
Severe multivessel CAD/NSTEMI - acute. S/p CABGx5 (RAE-LAD, RA-RI, SVG-Diag, SVG-PRDA, SVG-OM
- progressive angina over months, troponin peaked at 6.06.
- EKG with lateral ST depression.
- Echocardiogram with LVEF of 65-70% with no significant valvular disease.
- extubated this morning, recovering well post-operatively, no drips
- weight up from pre-op, could tolerate some gentle diuresis
- cont. DAPT, metop, amio ppx, norvasc ppx, protonix ppx
Hyperlipidemia:
- lipid profile TC 218, TG 136, HDL 37, LDL 154.
- Rosuvastatin 40 mg daily. Goal LDL<55.
HTN :
- Fairly controlled.
Tooth infection/pain - acute 2 days ago, on amoxicillin per dentist.
- per hospitalist.
Former drug use - on Methadone daily.
- clean for 8 years.
Possible large solid right renal mass - noted on chest CT.
- CT reviewed by Urology--no renal mass present, it is just atypical lobular contour of the kidney.
Obesity - chronic.
- would benefit from weight loss.
Physical Exam
Vital Signs/Labs
Vital Signs
Temp Pulse Resp BP Pulse Ox
37.3 C 79 17 137/84 91
06/12/25 08:00 06/12/25 08:02 06/12/25 08:02 06/12/25 08:00 06/12/25 08:02
06/11/25 06/12/25 06/13/25
06:59 06:59 06:59
Actual Weight 142.1 kg 144.3 kg
06/12/25 03:10
06/12/25 03:10
PT 16.7 Sec (11.4-14.6) H 06/11/25 16:07
INR 1.34 06/11/25 16:07
APTT 31.6 Sec (23.4-35.0) 06/11/25 16:07
Magnesium 2.7 mg/dl (1.6-2.3) H 06/12/25 03:10
Triglycerides 135 mg/dl (10-149) 06/11/25 20:50
LDL Cholesterol, Calc 154 mg/dl 06/09/25 05:41
VLDL Cholesterol, Calc 27 mg/dl (0-30) 06/09/25 05:41
HDL Cholesterol 37 mg/dl 06/09/25 05:41
06/09/25 06/11/25
05:41 20:50
[id number] Pept 1200 886
LAB Results
06/09/25 06/09/25
11:23 17:58
Troponin I 5.080 H* 4.220 H*
Physical Exam
Constitutional: Comfortable
Cardiovascular: Rhythm & rate is regular
Respiratory: Respiratory effort normal
Neuro/Psych: AO x 3
Data Reviewed
-
Date of Service: June 12, 2025
Medical Decision Making: Reviewed Test Results
EKG: Tracing Personally Visualized and interpreted
X-Ray/CT/US/MRI/NUC/PET: Image Personally Visualized and interpreted
Labs: Labs Reviewed by me
[2025-06-12] MEDS: NOVOLOG FLEXPEN SC ×3 (08:32→22:29)
[2025-06-12] MEDS: AMOXIL 500 MG PO ×3 (09:33→23:51)
[2025-06-12] MEDS: METHADONE 100 MG/10 ML 180 MG PO (09:33)
[2025-06-12] MEDS: FLEXERIL 5 MG PO (09:33)
--- NOTE | 2025-06-12 10:07 | PTCARENOTE ---
Cardizem gtt dc'd as ordered. R radial [place] dc'd as ordered. RIJ slick dc'd per orders, cordis maintained, dressing c/d/i. Rey dc'd as ordered. R&L pleural CTs dc'd as ordered, dressing c/d/i. PRN Flexeril given for pain.
[2025-06-12 10:23] LABS: Glucose - Point of Care 138 mg/dl (70-99)
[2025-06-12 11:09] LABS: Glucose - Point of Care 160 mg/dl (70-99)
--- NOTE | 2025-06-12 11:30 | PTCARENOTE ---
pt VSS, OOB to chair w/ CR. V wire insulated as ordered. pt NPO for dental procedure.
--- NOTE | 2025-06-12 11:52 | W.PN.INTV ---
Today's Communication / Plan
Recommendations
Continue postoperative care
Follow chest tube output
Follow hemoglobin
Increase activity as able
Diuresis to be started
No additional critical care recommendation
Sign off
Assessment
-
-
54-year-old gentleman with multivessel coronary artery disease, s/p coronary artery bypass graft, left atrial appendage ligation, POD # 1
Extubated 06/12/2025
On low rate supplemental oxygen
Encourage incentive spirometer
Increase mobility per protocol
-
Analgesia with narcotics as needed.
Monitor respiratory status closely
-
Follow chest tube output-nonexcessive
CXR -reviewed, postoperative changes. No pneumothorax or fluid collections.
Management per primary team
-
Hemodynamics acceptable
Cardizem drip to be weaned off
Normal renal function
Adequate urinary output
Postoperative anemia-stable. Follow-up.
Leukocytosis possibly reactive-afebrile.
Continue to monitor
Continue cardiac management
Diuretics
Cardiology following as well
Prior h/o smoking, Spirometry normal. No emphysema on CT
Advance diet as tolerated
Aspiration precaution
Encouraged incentive spirometry, OOB/ambulation/early mobility
Suspected obstructive sleep apnea: Discussed with patient.
Recommend outpatient sleep study he is agreeable-information will be left in the chart.
Patient to be transferred to telemetry, no additional critical care recommendations.
Sign off
Other medical diagnoses:
- Nephrolithiasis
- Colonic diverticulosis
- Hepatic steatosis
- H/o Smoking. No emphysema on CT and normal spirometry
- Chronic methadone use, h/o substance abuse
- Prolonged QTc
- BMI 41.3. At risk of sleep disordered breathing. Extubate to BiPAP. Will benefit from sleep study as out patient.
Data:
CT Chest 05/2025: No acute disease of the chest. No evidence of pulmonary embolus.
Spirometry 05/2025: FEV1 3.5 L, 86% of predicted, FVC 4.5 L, 85% of predicted, FEV1/FVC of 78. Normal spirometry without evidence of obstruction or restriction.
LHC 05/2025: 1. Mildly elevated LV filling pressure and no aortic stenosis.
2. Severe multivessel coronary artery disease as described with likely culprit stenosis in the mid-LAD, and possibly also the distal RCA.
ECHO 05/2025: 1. Ejection fraction is 65-70% by Herman's method of discs. No regional wall motion abnormalities.
2. Right ventricular size and systolic function are within normal limits.
3. No significant valvular disease.
4. The aorta, limited to the sinus of valsalva is dilated (4.0cm).
Subjective Dataa
Subjective Data
Date of Service:
Date of Service: June 12, 2025
Chief Complaint: Flower Picker Follow Up (Status post coronary artery bypass)
Subjective:
Extubated this morning
Denies any significant complaints
Pain is controlled
Denies increased cough
Review of Systems
Cardiopulmonary: Dyspnea (None at rest), Cough (n) and Sputum Production (n)
GI: Abdominal Pain (n)
Objective Data
Data Reviewed
Vital Signs / I&O / Oxygen:
Vital Signs
Temp Pulse Resp BP Pulse Ox
98.6 F 74 18 104/49 93
06/12/25 09:00 06/12/25 11:15 06/12/25 11:15 06/12/25 11:00 06/12/25 11:15
Intake and Output
06/11/25 06/12/25 06/13/25
06:59 06:59 06:59
Intake Total 960 / 960 869.0 / 895.0 107.0 / 107.0
Output Total 1720 / 1915 420 / 420
Balance 960 / 960 -851.0 / -1020.0 -313.0 / -313.0
SaO2 [CPAP/PSV] 95
SaO2 [A/C] 96
SaO2 [SIMV] 94
SaO2 93
Nasal Cannula flow liters per 6
minute
Physical Exam
General: Comfortable
HEENT: Normocephalic
Cardiovascular: S1-S2 and Rub
Respiratory: Clear and Chest Tube (No excessive drainage, no early)
GI: Non Distended
Neurology: Awake and Alert
Skin: Warm
Labs/Micro/Reports
Lab Data
06/12/25 03:10
06/12/25 03:10
Laboratory Results
06/11/25 06/11/25 06/11/25
07:30 16:07 20:50
PT 16.7 H
INR 1.34
APTT Cancelled 31.6
pH 7.34 L 7.40
pCO2 49 H 44
pO2 78 L 92
HCO3 26.4 27.3
O2 Delivery Level Not Reportable
06/12/25 06/12/25 06/12/25
00:14 01:13 02:10
PT
INR
APTT
pH 7.42 7.43 Cancelled
pCO2 43 41 Cancelled
pO2 135 H 96 Cancelled
HCO3 27.9 27.2 Cancelled
O2 Delivery Level Cancelled
06/12/25 06/12/25 06/12/25
02:19 03:10 05:02
PT
INR
APTT
pH 7.41 7.42 7.42
pCO2 42 42 41
pO2 141 H 105 75 L
HCO3 26.6 27.2 26.6
O2 Delivery Level
06/12/25
05:50
PT
INR
APTT
pH 7.43
pCO2 40
pO2 74 L
HCO3 26.5
O2 Delivery Level
[2025-06-12 12:08] LABS: Glucose - Point of Care 144 mg/dl (70-99)
[2025-06-12 13:10] LABS: Glucose - Point of Care 129 mg/dl (70-99)
[2025-06-12] MEDS: TYLENOL 975 MG PO ×2 (13:15→23:50)
[2025-06-12] MEDS: FERRLECIT 110 MG IV (13:16)
[2025-06-12] MEDS: ROXICODONE 5 MG PO (13:16)
[2025-06-12] MEDS: NSS IV (13:24)
[2025-06-12 14:09] LABS: Glucose - Point of Care 127 mg/dl (70-99)
--- NOTE | 2025-06-12 14:51 | CM ---
Reviewed chart. Met with Mr. Cope to review discharge plans. He states he is feeling well. He states prior to admission he resides with his mother and brother in a first floor apartment without any steps to enter. He states prior to
admission he was independent with ambulation and adls. He states he has a prescription plan and uses [facility] or [facility]. He states he is changing insurance plans to [employer] on the first of the year. He states he goes to [facility] for his methadone dosing. He states he leaf size picker his Methadone on Thursday and he gets six doses at a time. He states he has a few methadone pills at home. He has a counselor there who he sees one a month, Celsa. Will call [facility]
to check if a relative can leaf size picker his methadone until he is cleared to drive. Medical work-up in progress. The discharge plan is to return home with his spoke mother, brother and a home visit by the Transitional Care Nurse when medically stable.
[2025-06-12 16:18] LABS: Glucose - Point of Care 129 mg/dl (70-99)
--- NOTE | 2025-06-12 16:25 | PTCARENOTE ---
pt VSS, IS encouraged OOB. LUE and LLE BUBBA bandages removed. pt placed back to bed. pt states no urge to void, bladder scanned for 275ml. BELT BUCKLE MAKER aware.
[2025-06-12] MEDS: TORADOL 15 MG IV ×2 (16:56→23:50)
--- NOTE | 2025-06-12 17:04 | CON.ORS ---
Consultation - Oral Surgery
Subjective
54 year old male with past medical history of CABG yesterday. Consult for extractions due to concern for potential for endocarditis. Patient reports poor dental health. Patient denies symptoms of acute infection. No nausea, vomiting, fever or
chills.
Past Medical History
Past Medical History: Other (chart reviewed)
Past Surgical History: Other (chart reviewed)
Family History: Not Pertinent
Alcohol: None
Drug: Former User and Other (on methadone)
Medications / Allergies
Allergies
Allergy/AdvReac Type Severity Reaction Status Date / Time
No Known Allergies Allergy Unverified 06/08/25 22:14
Active Medications
Generic Name Dose Route Start Last Admin
Trade Name Freq PRN Reason Stop Dose Admin
Acetaminophen 650 mg 06/11/25 14:07
Acetaminophen 325 Mg Tablet PO 07/09/25 14:06
Q4HPRN PRN
mild pain,headache,temp >101F
Acetaminophen 975 mg 06/12/25 14:00 06/12/25 13:15
Acetaminophen 325 Mg Tablet PO 07/10/25 13:59 975 mg
TID@0600,1400,2200 BALDEV Administration
Albuterol Sulfate 2.5 mg 06/11/25 14:07 06/12/25 06:16
Albuterol Nebs 2.5 Mg/3 Ml Ampul INH 2.5 mg
R Q4HPRN PRN Administration
wheezing/shortness of breath
Protocol
Albuterol/Ipratropium 3 ml 06/12/25 08:00 06/12/25 16:13
Ipratropium 0.5/Albuterol 3 Mg (3 Ml Ampul) INH 3 ml
R QID BALDEV Administration
Protocol
Amiodarone HCl 200 mg 06/11/25 16:00 06/12/25 16:56
Amiodarone 200 Mg Tablet PO 07/09/25 15:59 200 mg
TID BALDEV Administration
Amlodipine Besylate 2.5 mg 06/12/25 08:00 06/12/25 08:11
Amlodipine 2.5 Mg Tablet PO 07/10/25 07:59 2.5 mg
DAILY BALDEV Administration
Amoxicillin 500 mg 06/09/25 16:00 06/12/25 16:55
Amoxicillin 500 Mg Capsule PO 500 mg
Q8 BALDEV Administration
Aspirin 81 mg 06/12/25 08:00 06/12/25 08:11
Aspirin 81 Mg Chewable Tablet PO 07/10/25 07:59 81 mg
DAILY BALDEV Administration
Bisacodyl 10 mg 06/11/25 14:07
Bisacodyl 10 Mg Rectal Suppository RECTAL 07/09/25 14:06
DAILYPRN PRN
constipation
Clopidogrel Bisulfate 75 mg 06/12/25 08:00 06/12/25 08:11
Clopidogrel 75 Mg Tablet PO 07/10/25 07:59 75 mg
DAILY BALDEV Administration
Cyclobenzaprine HCl 5 mg 06/11/25 14:07 06/12/25 09:33
Cyclobenzaprine 10 Mg Tablet PO 07/09/25 14:06 5 mg
Q8HPRN PRN Administration
muscle spasm
Dextrose 12.5 grams 06/11/25 14:07
Dextrose 50% (0.5 Grams/Ml) 50 Ml Syringe IV 07/09/25 14:06
[id number] PRN
Blood Glucose < 70
Doxycycline Hyclate 100 mg 06/09/25 10:00 06/12/25 08:10
Doxycycline 100 Mg Capsule PO 100 mg
Q12 BALDEV Administration
Gabapentin 100 mg 06/11/25 16:00 06/12/25 16:56
Gabapentin 100 Mg Capsule PO 07/09/25 15:59 100 mg
TID BALDEV Administration
Hydromorphone HCl 0.5 mg 06/11/25 14:07 06/11/25 17:04
Hydromorphone 0.5 Mg/0.5 Ml Syringe IV 06/14/25 14:06 0.5 mg
Q3HPRN PRN Administration
severe pain
Hydromorphone HCl 0.25 mg 06/11/25 14:07 06/12/25 08:11
Hydromorphone 0.25 Mg/0.5 Ml Syringe IV 06/25/25 14:06 0.25 mg
Q3HPRN PRN Administration
moderate pain
Acetaminophen 1,000 mg in 100 mls @ 400 mls/hr 06/11/25 14:07
Ofirmev IV
ONCE PRN
moderate pain
Protocol
Sodium Chloride 500 mls @ 10 mls/hr 06/11/25 14:07 06/12/25 13:24
Nss IV 07/09/25 08:08 Not Given
CORDIS BALDEV
Ferric Sodium Gluconate 110 mls @ 110 mls/hr 06/12/25 14:00 06/12/25 13:16
Complex 125 mg/ Sodium IV 06/14/25 14:59 110 mls
Chloride DAILY@1400 BALDEV Administration
Insulin Human Regular 100 units in 100 mls @ 0 mls/hr 06/11/25 14:07 06/12/25 04:14
Novolin R Insulin Infusion IV 100 mls
PER PROTOCOL BALDEV Administration
Protocol
Per Protocol
Propofol 1,000,000 mcg in 100 mls @ 0 mls/hr 06/11/25 18:15 06/12/25 05:11
Diprivan IV 100 mls
PER PROTOCOL BALDEV Administration
Protocol
Per Protocol
Insulin Aspart 0 units 06/11/25 14:07 06/12/25 11:29
Insulin Aspart (Novolog) 100 Units/Ml 3 Ml Flexpen SC 07/09/25 14:06 Not Given
AC BALDEV
Protocol
Ketorolac Tromethamine 15 mg 06/12/25 16:00 06/12/25 16:56
Ketorolac 15 Mg/Ml Injection IV 06/13/25 04:01 15 mg
Q6H BALDEV Administration
Magnesium Hydroxide 30 ml 06/11/25 14:07
Milk Of Magnesia 30 Ml Cup PO 07/09/25 14:06
BIDPRN PRN
if no BM in three days
Magnesium Oxide 400 mg 06/12/25 08:00
Magnesium Oxide 400 Mg Tablet PO 07/10/25 07:59
On Hold: 06/12/25 08:00 BID BALDEV
Comment: mg 2.7
Methadone HCl 180 mg 06/09/25 11:00 06/12/25 09:33
Methadone Oral Liquid (100 Mg/10 Ml) Cup PO 06/23/25 10:59 180 mg
DAILY BALDEV Administration
Metoprolol Tartrate 12.5 mg 06/12/25 08:00 06/12/25 08:11
Metoprolol 12.5 Mg Regular Release Dose (1/2 Of 25 Mg Tablet) PO 07/10/25 07:59 12.5 mg
Q12 BALDEV Administration
Mupirocin 0 applic 06/11/25 20:00 06/12/25 08:12
Mupirocin 2% (Ointment) 22 Gram Tube NASAL 06/15/25 08:01 1 applic
Q12 BALDEV Administration
Nicotine 14 mg 06/10/25 17:00 06/12/25 08:12
Nicotine 14 Mg Patch TRANSDERM 07/08/25 16:59 14 mg
DAILY BALDEV Administration
Ondansetron HCl 4 mg 06/11/25 14:07 06/11/25 17:59
Ondansetron 4 Mg/2 Ml Vial IV 07/09/25 14:06 4 mg
Q8HPRN PRN Administration
nausea/vomiting
Oxycodone HCl 5 mg 06/11/25 14:07 06/12/25 13:16
Oxycodone 5 Mg Regular Release Tablet PO 06/25/25 14:06 5 mg
Q4HPRN PRN Administration
moderate pain
Oxycodone HCl 2.5 mg 06/11/25 14:07
Oxycodone 5 Mg Regular Release Tablet PO 06/25/25 14:06
Q4HPRN PRN
mild pain
Pantoprazole Sodium 40 mg 06/12/25 08:00 06/12/25 08:11
Pantoprazole 40 Mg Delayed Release Tablet PO 07/10/25 07:59 40 mg
DAILY BALDEV Administration
Polyethylene Glycol 17 grams 06/12/25 08:00 06/12/25 09:50
Polyethylene Glycol Powder 17 Grams Packet TUBE 07/10/25 07:59 Not Given
DAILY BALDEV
Rosuvastatin Calcium 40 mg 06/11/25 18:00 06/11/25 17:35
Rosuvastatin (Crestor) 20 Mg Tablet PO 07/09/25 17:59 Not Given
QPM BALDEV
Sennosides 8.6 mg 06/11/25 20:00 06/12/25 08:11
Sennosides (Senokot) 8.6 Mg Tablet PO 07/09/25 19:59 8.6 mg
Q12 BALDEV Administration
Sodium Chloride 0 flush 06/11/25 15:00
Sodium Chloride 0.9% (Flush) Syringe IV 07/09/25 14:59
PER PROTOCOL BALDEV
Review of Systems
Constitutional: Reports No Symptoms
Eyes: Reports No Symptoms
ENT: Reports No Symptoms
Cardiovascular: Reports No Symptoms
Respiratory: Reports No Symptoms
Gastrointestinal: Reports No Symptoms
Genitourinary: Reports No Symptoms
Musculoskeletal: Reports No Symptoms
Neurological: Reports No Symptoms
Psychological: Reports No Symptoms
Endocrine: Reports No Symptoms
Hematological: Reports No Symptoms
Vital Signs
Temp Pulse Resp BP Pulse Ox
97.8 F 73 15 114/54 95
06/12/25 11:00 06/12/25 16:15 06/12/25 16:15 06/12/25 16:00 06/12/25 16:15
Physical Exam
General: Awake, Alert, Oriented x 3 and Not in Acute Distress
Extra-oral Exam: Edema (none), Erythema (none), Tenderness to Palpation (none), V2 10/10 Bilaterally and V3 10/10 Bilaterally
Intra-oral Exam: Edema (none), Erythema (none), Signs of Acute Infection (none) and Other (grossly decayed remaining teeth #4,5,6,10,11,12,19,20,21,22,24,25,26,27)
Imaging Results
Panorex is c/w physical exam findings of grossly decayed remaining teeth #4,5,6,10,11,12,19,20,21,22,24,25,26,27
Assessment / Plan
54 year old male consulted for extractions due to concern for future source for endocarditis. Based on physical and radiographic examination, I have recommended extraction of remaining teeth #4,5,6,10,11,12,19,20,21,22,24,25,26,27. We have
discussed all risks, benefits, complications and alternatives including but not limited to bleeding, pain, infection, swelling, oroantral communication, temporary or permanent damage to inferior alveolar nerve resulting in paresthesia, hypoesthesia,
anesthesia, dysesthesia, or loss of taste, fracture of jaw, damage to adjacent teeth or tissues, dislodgement of adjacent crowns or fillings etc. Patient is aware and understands all risks and complications. Consent signed and in chart.
- OK to advance diet as tolerated immediately post op
- salt water rinses TID postop x 2 weeks
- Call Dr. Mckay at [phone] with any questions
Data Reviewed
Diagnostic Imaging: Image personally visualized and interpreted, Report Reviewed by me and Discussed with Patient
Labs: Labs Reviewed by me
--- NOTE | 2025-06-12 17:12 | OR.RPT ---
Operative Report
Operative Report
Pre-op Diagnosis: s/p CABG; Dental Caries; Dental Abscess
Post-op Diagnosis: Same
Anesthesia: Local with sedation
Procedure: Extraction of teeth #4,5,6,10,11,12,19,20,21,22,24,25,26,27
Primary Surgeon: Nasim Mckay DMD, MD, FACS
Assisting Surgeons: none
Specimen: None
Cultures: None
Complications / Blood Loss: 10 cc
Findings: caries/abscess
Procedure in Detail: The patient was identified in the holding area and transported to the OR where he was transferred to the OR table and noninvasive monitors attached. Anesthesia was inducd. A throat pack was placed into the patients posterior
oropharynx and the sites were blocked and infiltrated with local anesthetic. Attention was directed to teeth #4,5,6,10,11,12,19,20,21,22,24,25,26,27 where a sulcular incision was made and flap reflected. The teeth were extracted surgically without
complications. The sockets were curetted to clear the abscesses and then irrigated with saline. The sockets were then packed with gelfoam and closed with 3-0 chromic. The throat pack was then removed and he was allowed to awaken. He was then
transported to the PACU for further recovery.
[2025-06-12 17:52] LABS: Glucose - Point of Care 122 mg/dl (70-99)
--- NOTE | 2025-06-12 18:19 | PTCARENOTE ---
pt sent to OR for dental procedure, report given to Domenico in OR.
[2025-06-12 19:11] LABS: Glucose - Point of Care 116 mg/dl (70-99)
[2025-06-12 20:25] LABS: Glucose - Point of Care 112 mg/dl (70-99)
--- NOTE | 2025-06-12 20:30 | PTCARENOTE ---
Assumed care of pt from dayshift RN. Pt back to CV ~1900 s/p dental operation. AAOx4. Appropriate. SR on the tele monitor. HR 80s. Temporary epicardial v-wire intact/insulated. BPs stable. Trace generalized edema. +1 B/L LE edema. Weakly palpable DP
pulses. Right radial / left ulnar pulse palpable. Pt 91-93% w/ 6L through a simple mask. Lung sounds diminished in B/L base. Mediastinal CTx2 to -20 suction, no airleaks noted, and output as documented. Abdomen round. +BSx4. Pt DTV. All surgical
sites stable at this time. Right IJ cordis and PIV x1 intact. Glycemic protocol followed. See worklist for full nursing assessment and interventions. No bleeding noted in mouth. Call corral within reach.
[2025-06-12 21:25] LABS: Glucose - Point of Care 109 mg/dl (70-99)
[2025-06-12] MEDS: CRESTOR 40 MG PO (21:29)
[2025-06-12] MEDS: TOPROL XL 12.5 MG PO (21:34)
[2025-06-12 22:31] LABS: Glucose - Point of Care 121 mg/dl (70-99)
[2025-06-12 23:22] LABS: Glucose - Point of Care 114 mg/dl (70-99)
[2025-06-13] VITALS (26 sets, daily range): BP systolic 101–149; BP diastolic 59–115; PULSE 85; O2SAT 94; BMI 41.3
--- NOTE | 2025-06-13 00:35 | PTCARENOTE ---
No acute changes in assessment. Pt SR on the tele monitor. HR 80s. BP stable. Pt 93% on 6 L NC. CTx2 assessment unchanged, output as documented. Pt stood to void. Glycemic protocol followed. Pt repositioned as documented. Call corral within reach.
[2025-06-13 01:13] LABS: Glucose - Point of Care 118 mg/dl (70-99)
[2025-06-13] MEDS: NOVOLIN R INSULIN INFUSION 100 IV (01:54)
[2025-06-13 03:29] LABS: Glucose - Point of Care 115 mg/dl (70-99)
--- NOTE | 2025-06-13 03:35 | PTCARENOTE ---
No acute changes in assessment. Pt SR on the tele monitor. HR 70-80s. BP stable. Pt 90-93% on 6 L NC. CTx2 assessment unchanged, output as documented. Glycemic protocol followed. Pt repositioned as documented. Labs drawn and sent. Call corral within
reach.
[2025-06-13 03:48] LABS: Hematocrit 28.4 % (39.0-52.0); Hemoglobin 9.9 g/dL (13.0-18.0); Mean Corp Hgb Conc. 34.9 g/dL (33.0-37.0); Mean Corpuscular Volume 91.9 fL (80.0-94.0); Platelet Count 192 10^3/uL (130-400); Red Cell Dist. Width 13.4 % (11.5-14.5)
[2025-06-13 04:13] LABS: Blood Urea Nitrogen 42 mg/dl (9-20); Calcium 8.7 mg/dl (8.4-10.2); Carbon Dioxide 29 mmol/L (22-30); Chloride 100 mmol/L (98-107); Estimated Creatinine Clearance > 125 ml/min; Glucose 96 mg/dl (70-99); Magnesium 2.7 mg/dl (1.6-2.3); Potassium 3.8 mmol/L (3.5-5.1); Sodium 136 mmol/L (135-145); eGFR > 60.00
--- NOTE | 2025-06-13 04:14 | W.PN.CT ---
Today's Communication / Plan
-
Plan:
-No major issues overnight. Hemodynamically and neurologically intact
-Underwent extraction of 14 teeth yesterday 06/12/25, currently edentulous
-On insulin gtt, will d/c today
-Acute postop urinary retention has resolved
-Postop EKG c/w acute pericarditis, + rub, not in excruciating pain, asymptomatic
-Monitor chest tube drainage for possible d/c: 2meds 80/245. AM CXR looks good with mild bibasilar atelectasis. F/u official report
-Consider d/c of temporary PW before d/c of mediastinal chest tubes
-On Norvasc for radial graft patency
-Cont. current meds (ASA, Plavix, Amiodarone, Lopressor, Crestor, Protonix, Norvasc)
-Maintain cordis another day
-Encourage use of IS
-Wean off O2 as tolerated
-OOB into chair/Ambulate
Assessment / Plan
-
Assessment:
-S/P Standard Sternotomy/Coronary artery bypass grafting x 5 (In situ RAE to LAD, Ao to radial artery to ramus intermedius, Ao to RSVG to diagonal, Ao to RSVG to OM 2, Ao to RSVG to PDA)/Endoscopic harvest of left radial artery/ Endoscopic vein
harvesting of left saphenous vein/ Left atrial appendage ligation using 40mm AtriClip device, by Dr. Yu, 06/11/25, pod#2
-Severe 3v CAD
-NSTEMI (peak trop 6.06)
-[place]
-LVEF 65-70%
-HTN
-HLD
-Class 1 obesity (BMI 41.2)
-Prediabetes (hgb A1C 6.0)
-Recent tooth infection/Dental caries/abscess (on Amoxicillin preop) S/P extraction of 14 teeth (#4,5,6,10,11,12,19,20,21,22,24,25,26,27), 06/12/25
-Edentulous
-hx B/L LE cellulitis
-Current tobacco abuse (2-3 pk/d x 10 yrs)
-Mild COPD
-Former substance abuse (clean x 8 yrs, on Methadone)
-Acute postop blood loss anemia (stable without blood transfusion)
-Acute postop respiratory distress/hypoxemia
-Acute postop VDRF
-Acute postop atelectasis
-Acute postop hypovolemia with subsequent hypervolemia
-Acute postop pericarditis, + rub
-Acute postop urinary retention
Discussed patient care with: Cardiology, Nursing, Respiratory Therapy, Pharmacy and Care Team
Subjective
Procedure
-S/P Standard Sternotomy/Coronary artery bypass grafting x 5 (In situ RAE to LAD, Ao to radial artery to ramus intermedius, Ao to RSVG to diagonal, Ao to RSVG to OM 2, Ao to RSVG to PDA)/Endoscopic harvest of left radial artery/ Endoscopic vein
harvesting of left saphenous vein/ Left atrial appendage ligation using 40mm AtriClip device, by Dr. Yu, 06/11/25, pod#1
-
Date of Service: June 13, 2025
Pt c/o mild incisional pain, otherwise feels well
Objective Data
-
Lab Results
06/13/25 03:26
06/13/25 03:26
PT 16.7 Sec (11.4-14.6) H 06/11/25 16:07
INR 1.34 06/11/25 16:07
APTT 31.6 Sec (23.4-35.0) 06/11/25 16:07
Vital Signs
Vital Signs
Temp Pulse Resp BP Pulse Ox
98 F 77 16 106/59 93
06/13/25 00:00 06/13/25 03:01 06/13/25 03:00 06/13/25 03:01 06/13/25 03:00
CT Intake/Output/Weight
06/12/25 06/12/25 06/13/25
06:59 18:59 06:59
Intake Total 580.7 / 895.0 299.0 / 435.0 136 / 435.0
Output Total 1270 / 1915 445 / 965 520 / 965
Balance -689.3 / -1020.0 -146.0 / -530.0 -384 / -530.0
SaO2: 93 (6L)
Physical Exam
-
General: Awake, Oriented and AOx3
Cardiovascular: Regular rate & rhythm, No Murmurs, No Rub and No Gallop
Respiratory: Decreased Breath Sounds (at bases)
Sternum: Stable
Incision: Clean, Dry, Intact and Dressing Intact
Extremities: Other (+trace edema)
Data Reviewed
-
Lab Results: Results Reviewed
Medications: Active Meds Reviewed
Chest X-Ray: Report Reviewed and Image Reviewed
ECG: Report Reviewed and Image Reviewed
[2025-06-13] MEDS: TORADOL 15 MG IV (04:27)
[2025-06-13 06:05] LABS: Glucose - Point of Care 106 mg/dl (70-99)
[2025-06-13] MEDS: KCL 40 MEQ PO (06:24)
[2025-06-13] MEDS: TYLENOL 975 MG PO ×3 (06:24→21:52)
[2025-06-13 07:58] LABS: Glucose - Point of Care 112 mg/dl (70-99)
--- NOTE | 2025-06-13 08:00 | PTCARENOTE ---
pt received from previous RN, oriented, OOB in chair. SR on the monitor, HR 70-80s. V wire insulated. SBP 100s. palpable pulses. pt on 6LNC, 92-93% POX. lungs diminished. pt denies cough or SOB. IS encouraged. CTx2, no air leak or crepitus noted. pt
abdomen round, s/n, +BS, +flatus. voids in urinal, ray. sternal incision ASSISTANT MAINTENANCE MANAGER, approximated. chest tube dressing c/d/i. L radial site ADARSH, approximated. L groin/thigh puncture ASSISTANT MAINTENANCE MANAGER. LLE incision ADARSH. sutures in mouth s/p teeth extraction yesterday.
RIJ cordis maintained. PIV. insulin gtt running as ordered. see worklist for VS, I&O, and assessment.
[2025-06-13] MEDS: DUONEB 3 ML INH ×4 (08:02→19:44)
[2025-06-13] MEDS: NEURONTIN 100 MG PO ×3 (08:39→21:52)
[2025-06-13] MEDS: PLAVIX 75 MG PO (08:39)
[2025-06-13] MEDS: NORVASC 2.5 MG PO (08:39)
[2025-06-13] MEDS: TOPROL XL 12.5 MG PO ×2 (08:40→20:09)
[2025-06-13] MEDS: AMOXIL 500 MG PO ×2 (08:40→16:37)
[2025-06-13] MEDS: VIBRAMYCIN 100 MG PO ×2 (08:40→20:09)
[2025-06-13] MEDS: METHADONE 100 MG/10 ML 180 MG PO (08:40)
[2025-06-13] MEDS: LOW STRENGTH ASPIRIN 81 MG PO (08:40)
[2025-06-13] MEDS: SENOKOT 8.6 MG PO ×2 (08:40→20:09)
[2025-06-13] MEDS: PROTONIX 40 MG PO (08:40)
[2025-06-13] MEDS: NICODERM TRANSDERMAL 14 MG TRANSDERM (08:41)
[2025-06-13] MEDS: BACTROBAN 2% OINTMENT 1 APPLIC NASAL ×2 (08:42→20:09)
[2025-06-13] MEDS: PACERONE 200 MG PO (08:54)
[2025-06-13] MEDS: NOVOLOG FLEXPEN 4 UNITS SC ×2 (09:24→14:12)
[2025-06-13 10:15] LABS: Glucose - Point of Care 127 mg/dl (70-99)
--- NOTE | 2025-06-13 11:19 | PTCARENOTE ---
pt VSS, voids in urinal. pt ambulated in hallway w/ CR on 6LNC. pt placed back to bed. V wire pulled by ASSISTANT TO THE VICE PRESIDENT, q15min VS completed per protocol.
[2025-06-13] MEDS: CORDARONE 103 MG IV ×2 (11:43→20:24)
[2025-06-13 12:24] LABS: Glucose - Point of Care 126 mg/dl (70-99)
--- NOTE | 2025-06-13 12:46 | PTCARENOTE ---
pt went into afib @~1129, HR 80-110s. pt denies palpitations or SOB. SPECIAL INSPECTOR aware. EKG performed. Amiodarone bolus given. amiodarone gtt started as ordered.
[2025-06-13] MEDS: CORDARONE 259 MG IV ×2 (12:49→20:36)
[2025-06-13 14:09] LABS: Glucose - Point of Care 97 mg/dl (70-99)
[2025-06-13] MEDS: FERRLECIT 110 MG IV (14:21)
--- NOTE | 2025-06-13 14:52 | CM ---
Reviewed chart. Telephone call to [facility], ([phone]) to check the best way for Mr. Cope to pick-up his methadone. [facility] states they have a free Uber that he can schedule to cotton picker his methadone. He
would have to call on Thursday to schedule his ride for his normal pick-up date on Thursday. [facility] stops dosing at 11:00 a.m. So he will have to be there before 11:00 a.m to pick-up medications. Met with Mr. Cope to review above. He states he
is feeling well. Prior to admission he resides with his mother and brother in a first floor apartment without any steps to enter. Prior to admission he was independent with ambulation and adls. He has a prescription plan and uses [facility] or
[facility]. He is changing insurance plans to [employer] on the first of the year. He goes to [facility] for his methadone dosing. He cotton picker his Methadone on Thursday and he gets six doses at a time. He has a few methadone pills at
home. He has a counselor there who he sees one a month, Celsa. The discharge plan is to return home with his spoke mother, brother and a home visit by the Transitional Care Nurse when medically stable.
--- NOTE | 2025-06-13 16:33 | W.PN.CD ---
Today's Communication / Plan
-
diuresis
initiate AC when safe from post-operative bleeding standpoint
Impression / Plan
-
54-year-old male with hypertension, chronic continued cigarette use, previous drug/alcohol abuse (on maintenance methadone for the past 8 years), and obesity presenting with chest pain and shortness of breath. Cardiac enzymes increasing, consistent
with an NSTEMI. Now status post CABGx5 w/ Dr. Yu.
Teeth extracted yesterday. Off all drips.
Having asymptomatic Afib w/ rates in the 110s. Holding AC for now.
Severe multivessel CAD/NSTEMI - acute. S/p CABGx5 (RAE-LAD, RA-RI, SVG-Diag, SVG-PRDA, SVG-OM
- progressive angina over months, troponin peaked at 6.06.
- Echocardiogram with LVEF of 65-70% with no significant valvular disease.
- cont. diuresis
- cont. DAPT, metop, amio load, norvasc ppx, protonix ppx
Afib
- rates 110s but hemodynamically stable
- start anticoagulation when safe from post-operative bleeding standpoint
- cont. amio load
Hyperlipidemia:
- lipid profile TC 218, TG 136, HDL 37, LDL 154.
- Rosuvastatin 40 mg daily. Goal LDL<55.
HTN :
- controlled.
Physical Exam
Vital Signs/Labs
Vital Signs
Temp Pulse Resp BP Pulse Ox
36.8 C 115 20 105/77 92
06/13/25 11:00 06/13/25 15:01 06/13/25 15:01 06/13/25 12:45 06/13/25 13:00
06/12/25 06/13/25 06/14/25
06:59 06:59 06:59
Actual Weight 144.3 kg 142.1 kg
06/13/25 03:26
06/13/25 03:26
PT 16.7 Sec (11.4-14.6) H 06/11/25 16:07
INR 1.34 06/11/25 16:07
APTT 31.6 Sec (23.4-35.0) 06/11/25 16:07
Magnesium 2.7 mg/dl (1.6-2.3) H 06/13/25 03:26
Triglycerides 135 mg/dl (10-149) 06/11/25 20:50
LDL Cholesterol, Calc 154 mg/dl 06/09/25 05:41
VLDL Cholesterol, Calc 27 mg/dl (0-30) 06/09/25 05:41
HDL Cholesterol 37 mg/dl 06/09/25 05:41
06/09/25 06/11/25
05:41 20:50
Fqs-Q-Anuvxewxjjs Pept 1200 886
Physical Exam
Constitutional: Comfortable
Cardiovascular: Rhythm/rate is irregular
Respiratory: Respiratory effort normal
Neuro/Psych: AO x 3
Data Reviewed
-
Date of Service: June 13, 2025
Medical Decision Making: Reviewed Test Results
EKG: Report Reviewed by me
Labs: Labs Reviewed by me
[2025-06-13 16:35] LABS: Glucose - Point of Care 135 mg/dl (70-99)
[2025-06-13] MEDS: CRESTOR 40 MG PO (16:37)
[2025-06-13] MEDS: NSS 500 IV (16:39)
[2025-06-13] MEDS: NOVOLOG FLEXPEN SC (16:51)
[2025-06-13 18:19] LABS: Glucose - Point of Care 136 mg/dl (70-99)
--- NOTE | 2025-06-13 20:00 | PTCARENOTE ---
Pt care assumed from elier RN. Pt OOB in chair, fully alert and oriented. Pt requires minimal assist x1 to stand and ambulate. On amio gtt for afib with rate in 110-120s. Amio bolus ordered. BP stable. Pulses palpable in upper and lower
extremities, weak on palpation in lowers. +1 edema generalized. Pt on room air, O2 sat 92-93%, bases diminished. No cough noted. Pt has not yet reported a BM, scheduled senna given. Pt voided 225 cc in urinal standing at bedside. Surgical incisions
clean, dry, intact with no drainage noted. RIJ cordis and RA2 PIV in place. Bedside fingerstick glucose 142.
[2025-06-13 20:36] LABS: Glucose - Point of Care 142 mg/dl (70-99)
[2025-06-14] VITALS (11 sets, daily range): BP systolic 123–169; BP diastolic 63–88; BMI 41.4
[2025-06-14] MEDS: AMOXIL 500 MG PO ×4 (00:04→22:56)
--- NOTE | 2025-06-14 00:10 | PTCARENOTE ---
Patient sleeping in bed. Denies pain. Placed back on 4LNC, pt does have hx of sleep apnea. O2 sat on 4LNC 94%. Vital signs stable otherwise. Amio gtt continued. Pt coverted from afib to NSR with new rate of 75.
--- NOTE | 2025-06-14 04:03 | W.PN.CT ---
Today's Communication / Plan
-
Plan:
-No major issues overnight. Hemodynamically and neurologically intact
-Underwent extraction of 14 teeth on 06/12/25, currently edentulous
-On Amiodarone gtt for ~ 8 hrs of a-fib with RVR yesterday 06/13. Will discuss oral anticoagulation if further a-fib
-Will increase BB from 12.5 BID to 25 mg BID
-On Norvasc for radial graft patency
-Holding mag oxide, mg 2.4
-Monitor hyponatremia, 134. Fluid restriction, diuresis as BP permits
-Acute postop urinary retention has resolved
-Postop EKG c/w acute pericarditis, + rub, not in excruciating pain, asymptomatic
-Methadone dose decreased d/t increased QTc, check ekg today
-Cont. current meds (ASA, Plavix, Amiodarone, Lopressor, Crestor, Protonix, Norvasc)
-Maintain cordis another day given a-fib
-Encourage use of IS
-Weaned off oxygen, currently 93% on RA
-OOB into chair/Ambulate
-Home in 1-2 days
Assessment / Plan
-
Assessment:
-S/P Standard Sternotomy/Coronary artery bypass grafting x 5 (In situ RAE to LAD, Ao to radial artery to ramus intermedius, Ao to RSVG to diagonal, Ao to RSVG to OM 2, Ao to RSVG to PDA)/Endoscopic harvest of left radial artery/ Endoscopic vein
harvesting of left saphenous vein/ Left atrial appendage ligation using 40mm AtriClip device, by Dr. Yu, 06/11/25, pod#3
-Severe 3v CAD
-NSTEMI (peak trop 6.06)
-[place]
-LVEF 65-70%
-HTN
-HLD
-Class 1 obesity (BMI 41.2)
-Prediabetes (hgb A1C 6.0)
-Recent tooth infection/Dental caries/abscess (on Amoxicillin preop) S/P extraction of 14 teeth (#4,5,6,10,11,12,19,20,21,22,24,25,26,27), 06/12/25
-Edentulous
-hx B/L LE cellulitis
-Current tobacco abuse (2-3 pk/d x 10 yrs)
-Mild COPD
-Former substance abuse (clean x 8 yrs, on Methadone)
-Acute postop blood loss anemia (stable without blood transfusion)
-Acute postop respiratory distress/hypoxemia
-Acute postop VDRF
-Acute postop atelectasis
-Acute postop hypovolemia with subsequent hypervolemia
-Acute postop pericarditis, + rub
-Acute postop urinary retention
-Acute postop hyponatremia
Discussed patient care with: Cardiology, Nursing, Respiratory Therapy, Pharmacy and Care Team
Subjective
Procedure
-S/P Standard Sternotomy/Coronary artery bypass grafting x 5 (In situ RAE to LAD, Ao to radial artery to ramus intermedius, Ao to RSVG to diagonal, Ao to RSVG to OM 2, Ao to RSVG to PDA)/Endoscopic harvest of left radial artery/ Endoscopic vein
harvesting of left saphenous vein/ Left atrial appendage ligation using 40mm AtriClip device, by Dr. Yu, 06/11/25, pod#1
-
Date of Service: June 14, 2025
Pt c/o mild incisional pain, otherwise feel well
Objective Data
-
PT 16.7 Sec (11.4-14.6) H 06/11/25 16:07
INR 1.34 06/11/25 16:07
APTT 31.6 Sec (23.4-35.0) 06/11/25 16:07
Vital Signs
Vital Signs
Temp Pulse Resp BP Pulse Ox
98.2 F 69 16 134/69 92
06/14/25 00:05 06/14/25 03:15 06/14/25 00:05 06/14/25 00:08 06/14/25 03:15
CT Intake/Output/Weight
06/13/25 06/13/25 06/14/25
06:59 18:59 06:59
Intake Total 171 / 470.0 187 / 530.3 343.3 / 530.3
Output Total 565 / 1010 1030 / 1655 625 / 1655
Balance -394 / -540.0 -843 / -1124.7 -281.7 / -1124.7
SaO2: 92 (2L)
Physical Exam
-
General: Awake, Oriented and AOx3
Cardiovascular: Regular rate & rhythm, No Murmurs, No Rub and No Gallop
Respiratory: Decreased Breath Sounds (at bases, otherwise clear)
Sternum: Stable
Incision: Clean, Dry, Intact and Dressing Intact
Extremities: Other (+trace edema)
Data Reviewed
-
Lab Results: Results Reviewed
Medications: Active Meds Reviewed
Chest X-Ray: Report Reviewed and Image Reviewed
ECG: Report Reviewed and Image Reviewed
--- NOTE | 2025-06-14 04:25 | PTCARENOTE ---
Patient OOB into chair, voided in urinal standing at bedside. Pt weight 142.4 kg. Placed back on room air, sat 91%. Remains on amio gtt, NSR 77 bpm
[2025-06-14 04:35] LABS: Hematocrit 28.4 % (39.0-52.0); Hemoglobin 9.9 g/dL (13.0-18.0); Mean Corp Hgb Conc. 34.9 g/dL (33.0-37.0); Mean Corpuscular Volume 92.5 fL (80.0-94.0); Platelet Count 213 10^3/uL (130-400); Red Cell Dist. Width 13.7 % (11.5-14.5)
[2025-06-14 05:03] LABS: Blood Urea Nitrogen 31 mg/dl (9-20); Calcium 8.8 mg/dl (8.4-10.2); Carbon Dioxide 27 mmol/L (22-30); Chloride 101 mmol/L (98-107); Estimated Creatinine Clearance > 125 ml/min; Glucose 100 mg/dl (70-99); Magnesium 2.4 mg/dl (1.6-2.3); Potassium 3.8 mmol/L (3.5-5.1); Sodium 134 mmol/L (135-145); Triglycerides 134 mg/dl (10-149); eGFR > 60.00
[2025-06-14] MEDS: TYLENOL 975 MG PO ×3 (05:23→21:21)
[2025-06-14] MEDS: KCL 40 MEQ PO (06:08)
[2025-06-14 07:07] LABS: Glucose - Point of Care 122 mg/dl (70-99)
[2025-06-14] MEDS: NOVOLOG FLEXPEN-MODERATE RESISTANCE SC ×3 (07:41→17:03)
--- NOTE | 2025-06-14 08:03 | PTCARENOTE ---
Assumed care of patient at 0700. Pt is awake, alert, and oriented. No complaints of pain at this time. Pt currently SR with HR 75. BP 145/83 MAP 100. Pulse oximetry 95% on room air. Pt utilizing IS, continued use encourage. Pt tolerating PO diet.
Voiding without issue. Midsternal incision approximated with surgical adhesive. Left leg incision and left arm incisions approximated with surgical adhesive. Right IJ cordis in place. Pt remains on Amio gtt at 0.5mg/min. Currently OOB in chair with
call corral within reach.
[2025-06-14] MEDS: LASIX 40 MG IV (08:38)
[2025-06-14] MEDS: METHADONE 100 MG/10 ML PO (08:39)
[2025-06-14] MEDS: NORVASC 2.5 MG PO (08:39)
[2025-06-14] MEDS: PROTONIX 40 MG PO (08:39)
[2025-06-14] MEDS: SENOKOT 8.6 MG PO ×2 (08:39→21:19)
[2025-06-14] MEDS: VIBRAMYCIN 100 MG PO ×2 (08:39→21:20)
[2025-06-14] MEDS: DUONEB 3 ML INH ×4 (08:40→21:36)
[2025-06-14] MEDS: PLAVIX 75 MG PO (08:40)
[2025-06-14] MEDS: LOW STRENGTH ASPIRIN 81 MG PO (08:40)
[2025-06-14] MEDS: NEURONTIN 100 MG PO ×3 (08:40→21:20)
[2025-06-14] MEDS: NICODERM TRANSDERMAL 14 MG TRANSDERM (08:40)
[2025-06-14] MEDS: TOPROL XL 25 MG PO (08:40)
[2025-06-14] MEDS: BACTROBAN 2% OINTMENT 1 APPLIC NASAL ×2 (08:41→21:31)
--- NOTE | 2025-06-14 10:15 | W.PN.CD ---
Today's Communication / Plan
-
Continue routine post operative care.
DOAC when bleeding risk acceptable.
Ambulation.
Incentive spirometry.
Impression / Plan
-
Impression/Plan: 54-year-old male with hypertension, chronic cigarette use, previous drug/alcohol abuse (on maintenance methadone for the past 8 years) and obesity admitted with NSTEMI.
#Severe multivessel CAD/NSTEMI
-Acute.
-Progressive angina over months, troponin peaked at 6.06.
-Echocardiogram with LVEF of 65-70% with no significant valvular disease.
-Cath shows severe multivessel CAD.
-S/p CABGx5 (RAE-LAD, RA-RI, SVG-Diag, SVG-PRDA, SVG-OM) on 06/11/[address] Yu.
-Continue DAPT, amlodipine, metoprolol, amiodarone gtt.
-Incentive spirometry.
-Ambulation.
#Atrial fibrillation
-New diagnosis - paroxysmal vs. perioperative.
-AF rates 110s but hemodynamically stable, currently in NSR.
-Rate/rhythm control with amiodarone gtt/load, metoprolol.
-CHADS2-Vasc = 2 (HTN, vascular disease)
-S/P LAAE (#40 AtriClip) with Dr. Yu, 06/11/2025.
-Start anticoagulation when safe from post-operative bleeding standpoint.
#Hyperlipidemia
-Chronic.
-Lipid profile TC 218, TG 136, HDL 37, LDL 154.
-Rosuvastatin 40 mg daily. Goal LDL<55.
#HTN
-Chronic, controlled.
Subjective/Interval History:
Brief atrial fibrillation episodes.
Weight is up 0.3 kg from yesterday, near baseline/doyle.
Feels well.
DATA:
Cardiac Catheterization, 06/09/2025:
CORONARY ANGIOGRAPHY
Dominance: Right
LM: Large vessel with minimal disease.
LAD: Large vessel giving rise to a large branching D1/ramus and moderate caliber D2. There is a focal severe napkin ring ~90% stenosis in the mid LAD after the D2 with TIMI2 flow distally. There is focally severe ~80% stenosis in the proximal D1 and
focally severe ~80% stenosis in the proximal D2.
LCx: Large vessel with a small OM1 and moderate caliber bifurcating OM2. The OM1 has diffuse mild disease throughout and focal proximal stenosis up to ~80%. The OM2 has focally severe ~70% stenosis proximally.
RCA: Large vessel giving rise to a large RPDA, moderate caliber RPL1, and several small distal RPL branches. There is diffuse mild to moderate plaque, a focal 90% stenosis in the mid RCA, and Graham 1,0,0 bifurcation disease at the RPDA/RPL
bifurcation with focal disease up to 90% in the ostium of both branches. There is BARBARA II flow in the RPDA and particularly in the distal RPL branches. The RPDA is a reasonable surgical conduit, however the RPL system, though subtending a relatively
large territory, does not appear to have branches of sufficient caliber for bypass conduits.
RADIATION: dose 516 mGy; DAP 56 Gy*cm2; fluoroscopy time 2.4 min
CONCLUSIONS
1. Mildly elevated LV filling pressure and no aortic stenosis.
2. Severe multivessel coronary artery disease as described with likely culprit stenosis in the mid-LAD, and possibly also the distal RCA.
CABG, 06/11/2025:
Procedure(s) Performed:
1. Standard Sternotomy with Aortic and Right Atrial Cannulation
2. Internal Mammary Artery Harvesting, Left
3. Coronary artery bypass grafting x 5 (In situ RAE to LAD, Ao to radial artery to ramus intermedius, Ao to RSVG to diagonal, Ao to RSVG to OM 2, Ao to RSVG to PDA)
4. Endoscopic vein harvesting of left saphenous vein
5. Endoscopic harvest of left radial artery
6. Left atrial appendage ligation using 40mm AtriClip device
7. Transesophageal echocardiography
8. Placement of Temporary Ventricular Pacing Wires
Dental Extraction, 06/12/2025:
Procedure: Extraction of teeth #4,5,6,10,11,12,19,20,21,22,24,25,26,27
Physical Exam
Vital Signs/Labs
Vital Signs
Temp Pulse Resp BP Pulse Ox
37.1 C 77 16 145/83 95
06/14/25 08:00 06/14/25 09:00 06/14/25 08:41 06/14/25 07:03 06/14/25 08:55
06/12/25 06/13/25 06/14/25
11:59 11:59 11:59
Actual Weight 144.3 kg 142.1 kg 142.4 kg
06/14/25 04:19
06/14/25 04:19
PT 16.7 Sec (11.4-14.6) H 06/11/25 16:07
INR 1.34 06/11/25 16:07
APTT 31.6 Sec (23.4-35.0) 06/11/25 16:07
Magnesium 2.4 mg/dl (1.6-2.3) H 06/14/25 04:19
Triglycerides 134 mg/dl (10-149) 06/14/25 04:19
LDL Cholesterol, Calc 154 mg/dl 06/09/25 05:41
VLDL Cholesterol, Calc 27 mg/dl (0-30) 06/09/25 05:41
HDL Cholesterol 37 mg/dl 06/09/25 05:41
06/09/25 06/11/25
05:41 20:50
Ydf-H-Binowlmofto Pept 1200 886
Physical Exam
Constitutional: No acute distress and Comfortable
EENT: Anicteric and Moist mucous membranes
Cardiovascular: Rhythm & rate is regular, JVD pressure is normal, Pedal edema present (1+ bilateral LE edema.), S1S2 is normal and Murmur/rub/gallop absent
Respiratory: Respiratory effort normal, Lungs clear to auscul., Wheeze Absent, Crackles Absent and Rhonchi Absent
GI: Soft, Distention absent, Flat, Non tender and Normal bowel sounds
Neuro/Psych: AO x 3
Data Reviewed
-
Date of Service: June 14, 2025
Medical Decision Making: Reviewed Test Results, Independent Historian Assessment and Test Interpretation
EKG: Tracing Personally Visualized and interpreted and Report Reviewed by me
Echo: Report Reviewed by me
X-Ray/CT/US/MRI/NUC/PET: Image Personally Visualized and interpreted and Report Reviewed by me
Medical Tests (PFT, Pathology etc): Report Reviewed by me
Labs: Labs Reviewed by me
Old Records: Reviewed
--- NOTE | 2025-06-14 11:40 | PTCARENOTE ---
Pt remains SR with HR 75. BP 131/72 MAP 90. Pulse oximetry 96% on room air. Pt ambulated with RN in hallway, tolerated well.
--- NOTE | 2025-06-14 12:26 | PTCARENOTE ---
Ej gtt d/c'd per order. Kendall d/c'd.
[2025-06-14] MEDS: NSS IV (13:10)
[2025-06-14 13:20] LABS: Glucose - Point of Care 135 mg/dl (70-99)
[2025-06-14] MEDS: FERRLECIT 110 MG IV (13:23)
--- NOTE | 2025-06-14 13:31 | CM ---
Chart reviewed. Patient is independent of ADLS, lives in a apartment with his mom and brother, 0 STEPHANIE, 0 DME. Patient is tentatively being discharged 06/15. Patient will need a dose of Methadone before he lives the hospital. Patient called
[facility] and they are going to pick him up Thursday and transport him to the Methadone clinic to give him a dose of Methadone and replace the current tablets he has until he goes again on Thursday. Patient knows he will need [facility]
to provide him transportation to the Methadone clinic while he is unable to drive. I faxed the patient's tentative discharge medication list to [facility] and will fax over the official discharge medication list once patient is dicharged. Plan is for
the patient to return home with CT Transitional RN. PARDEEP to follow
[2025-06-14] MEDS: PACERONE 200 MG PO ×2 (15:53→22:56)
[2025-06-14] MEDS: CRESTOR 40 MG PO (17:06)
[2025-06-14 17:27] LABS: Glucose - Point of Care 123 mg/dl (70-99)
--- NOTE | 2025-06-14 19:27 | PTCARENOTE ---
~1200: Received handoff report from POWER PLANT INSPECTOR.
~1230: Patient ambulated down to new room on IVU. Belongings brought with. family in room. Patient independent in room. All needs met at this time, call corral within reach.
~[id number]: Patient independent in room. Ferrlecit bag hung. VSS. All needs met at this time, call corral within reach.
~[id number]: No change in previous assessment. Patient does not c/o pain at this time. VSS. All needs met, call corral within reach. Handoff report given to nightshift RN.
[2025-06-14] MEDS: TOPROL XL 50 MG PO (21:19)
[2025-06-14 22:46] LABS: Glucose - Point of Care 98 mg/dl (70-99)
[2025-06-15] VITALS: PULSE 2; PULSE 69
--- NOTE | 2025-06-15 01:21 | PTCARENOTE ---
Pt. is AAOx3, VSS, ambulates independently with steady gait. NSR on the monitor. Denies any pain/discomfort. Sternal incision / left leg & arm incisions approximated and ORE BRIDGE OPERATOR without drainage. Pt. resting quietly.
[2025-06-15 03:10] VITALS: BP 146/75
[2025-06-15 04:43] LABS: Hematocrit 27.9 % (39.0-52.0); Hemoglobin 9.7 g/dL (13.0-18.0); Mean Corp Hgb Conc. 34.8 g/dL (33.0-37.0); Mean Corpuscular Volume 91.8 fL (80.0-94.0); Platelet Count 218 10^3/uL (130-400); Red Cell Dist. Width 13.8 % (11.5-14.5)
--- NOTE | 2025-06-15 04:49 | PTCARENOTE ---
Critical EKG with prolonged QTc shown to CHUCK Amezquita. No new orders at this time.
[2025-06-15 05:04] VITALS: BMI 41.3
[2025-06-15 05:11] LABS: Blood Urea Nitrogen 25 mg/dl (9-20); Calcium 8.5 mg/dl (8.4-10.2); Carbon Dioxide 25 mmol/L (22-30); Chloride 103 mmol/L (98-107); Estimated Creatinine Clearance > 125 ml/min; Glucose 81 mg/dl (70-99); Magnesium 2.4 mg/dl (1.6-2.3); Potassium 3.9 mmol/L (3.5-5.1); Sodium 136 mmol/L (135-145); eGFR > 60.00
[2025-06-15] MEDS: TYLENOL 975 MG PO (06:22)
[2025-06-15 06:53] VITALS: BP 111/71
[2025-06-15] MEDS: DUONEB 3 ML INH ×2 (07:37→11:35)
--- NOTE | 2025-06-15 08:51 | W.PN.CT ---
Today's Communication / Plan
-
-pod #4
-no complaints, no issues overnight, wants to go home
-recent a-fib on 06/13. Remains in nsr. Toprol XL increased to 100 mg daily (same dose at home)
-long Qt - Methadone was decreased fro 180 to 100 mg per day. ECG this am wtih nsr 69 bpm, Qt 534/572 ms- will review with Cardiology
-? decrease Amio d/t long Qt
-currently on ASA and Plavix. Noted Cardiology recommendation for anticoagulation for a-fib
-follow 2v-CXR
-encourage IS, OOB, ambulate
Assessment / Plan
-
Assessment:
-S/P Standard Sternotomy/Coronary artery bypass grafting x 5 (In situ RAE to LAD, Ao to radial artery to ramus intermedius, Ao to RSVG to diagonal, Ao to RSVG to OM 2, Ao to RSVG to PDA)/Endoscopic harvest of left radial artery/ Endoscopic vein
harvesting of left saphenous vein/ Left atrial appendage ligation using 40mm AtriClip device, by Dr. Yu, 06/11/25, pod#4
-Severe 3v CAD
-NSTEMI (peak trop 6.06)
-[place]
-LVEF 65-70%
-HTN
-HLD
-Class 1 obesity (BMI 41.2)
-Prediabetes (hgb A1C 6.0)
-Recent tooth infection/Dental caries/abscess (on Amoxicillin preop) S/P extraction of 14 teeth (#4,5,6,10,11,12,19,20,21,22,24,25,26,27), 06/12/25
-Edentulous
-hx B/L LE cellulitis
-Current tobacco abuse (2-3 pk/d x 10 yrs)
-Mild COPD
-Former substance abuse (clean x 8 yrs, on Methadone)
-Acute postop blood loss anemia (stable without blood transfusion)
-Acute postop respiratory distress/hypoxemia
-Acute postop VDRF
-Acute postop atelectasis
-Acute postop hypovolemia with subsequent hypervolemia
-Acute postop pericarditis, + rub
-Acute postop urinary retention
-Acute postop hyponatremia
-Acute postop a-fib on 06/13
-Acute postop prolonged Qt- Methadone was decreased from 180 mg to 100 mg/day
Discussed patient care with: Nursing and Care Team
Subjective
Procedure
-S/P Standard Sternotomy/Coronary artery bypass grafting x 5 (In situ RAE to LAD, Ao to radial artery to ramus intermedius, Ao to RSVG to diagonal, Ao to RSVG to OM 2, Ao to RSVG to PDA)/Endoscopic harvest of left radial artery/ Endoscopic vein
harvesting of left saphenous vein/ Left atrial appendage ligation using 40mm AtriClip device, by Dr. Yu, 06/11/25, pod#1
-
Date of Service: June 15, 2025
Objective Data
-
Lab Results
06/15/25 04:30
06/15/25 04:30
PT 16.7 Sec (11.4-14.6) H 06/11/25 16:07
INR 1.34 06/11/25 16:07
APTT 31.6 Sec (23.4-35.0) 06/11/25 16:07
Vital Signs
Vital Signs
Temp Pulse Resp BP Pulse Ox
98.8 F 74 14 111/71 100
06/15/25 06:51 06/15/25 07:40 06/15/25 07:40 06/15/25 06:53 06/15/25 06:51
CT Intake/Output/Weight
06/14/25 06/15/25 06/15/25
18:59 06:59 18:59
Intake Total 160.2 / 160.2
Output Total 1100 / 2900 1800 / 2900
Balance -939.8 / -2739.8 -1800 / -2739.8
SaO2: 100
Physical Exam
-
General: Awake, Oriented and AOx3
Cardiovascular: Regular rate & rhythm, No Murmurs, No Rub and No Gallop
Respiratory: Decreased Breath Sounds (at bases, otherwise clear)
Sternum: Stable
Incision: Clean, Dry, Intact and Dressing Intact
Extremities: Other (+trace edema)
Data Reviewed
-
Lab Results: Results Reviewed
Medications: Active Meds Reviewed
Chest X-Ray: Report Reviewed and Image Reviewed
ECG: Report Reviewed and Image Reviewed
[2025-06-15 08:53] LABS: Glucose - Point of Care 304 mg/dl (70-99)
[2025-06-15] MEDS: METHADONE 100 MG/10 ML PO (08:57)
[2025-06-15] MEDS: BACTROBAN 2% OINTMENT 1 APPLIC NASAL (08:57)
[2025-06-15] MEDS: NOVOLOG FLEXPEN-MODERATE RESISTANCE 7 UNITS SC (08:58)
[2025-06-15] MEDS: PROTONIX 40 MG PO (08:59)
[2025-06-15] MEDS: VIBRAMYCIN 100 MG PO (08:59)
[2025-06-15] MEDS: LOW STRENGTH ASPIRIN 81 MG PO (09:00)
[2025-06-15] MEDS: PLAVIX 75 MG PO (09:00)
[2025-06-15] MEDS: AMOXIL 500 MG PO (09:00)
[2025-06-15] MEDS: NEURONTIN 100 MG PO (09:00)
[2025-06-15] MEDS: SENOKOT 8.6 MG PO (09:00)
[2025-06-15 09:01] VITALS: BP 147/88
[2025-06-15] MEDS: PACERONE 200 MG PO (09:01)
[2025-06-15] MEDS: NORVASC 2.5 MG PO (09:01)
[2025-06-15] MEDS: TOPROL XL 100 MG PO (09:01)
[2025-06-15] MEDS: NICODERM TRANSDERMAL 14 MG TRANSDERM (09:01)
--- NOTE | 2025-06-15 10:36 | PTCARENOTE ---
Patient received at change of shift resting in the bed. Surgical sites intact. The patient denies pain and is excited to go home hopefully today. SR with prolonged QT on telemetry. EKG completed, Dr. Pugh shown at bedside as the patient continues
to have a prolonged QT interval. SaO2 on RA 96-100%. The patient is ambulating independently in the room, maintaining sternal precautions. Plan of care discussed. Call corral within reach. Care ongoing.
[2025-06-15 11:02] VITALS: BP 139/85
--- NOTE | 2025-06-15 11:30 | PTCARENOTE ---
Patient washed lower extremities in shower and used wash cloth for upper extremity. Dr. Yu OK with partial bath. Per the patient he does not want to take a full shower at this time.
--- NOTE | 2025-06-15 11:58 | W.PN.CD ---
Today's Communication / Plan
-
Stable for discharge.
Impression / Plan
-
Impression/Plan: 54-year-old male with hypertension, chronic cigarette use, previous drug/alcohol abuse (on maintenance methadone for the past 8 years) and obesity admitted with NSTEMI.
#Severe multivessel CAD/NSTEMI
-Acute.
-Progressive angina over months, troponin peaked at 6.06.
-Echocardiogram with LVEF of 65-70% with no significant valvular disease.
-Cath shows severe multivessel CAD.
-S/p CABGx5 (RAE-LAD, RA-RI, SVG-Diag, SVG-PRDA, SVG-OM) on 06/11/[address] Yu.
-Continue DAPT, amlodipine, metoprolol, amiodarone
- With history of long QT and use of methadone on board, we will reduce amiodarone dose to 200 mg once a day
-Incentive spirometry.
-Ambulation.
-Stable for discharge home
#Atrial fibrillation
- Post Op Afib.
- 8 hours of A-fib postop that was terminated spontaneously.
- Remained in sinus rhythm since then.
- On amiodarone 20 mg once a day.
-Rate/rhythm control with amiodarone gtt/load, metoprolol.
-CHADS2-Vasc = 2 (HTN, vascular disease)
-S/P LAAE (#40 AtriClip) with Dr. Yu, 06/11/2025.
- If no A-fib noted, we can consider a single episode as postop AF and will not need long-term anticoagulation therapy. However if atrial fibrillation is noted after discharge, he will need long-term anticoagulation therapy.
#Hyperlipidemia
-Chronic.
-Lipid profile TC 218, TG 136, HDL 37, LDL 154.
-Rosuvastatin 40 mg daily. Goal LDL<55.
#HTN
-Chronic, controlled.
Subjective/Interval History:
Feeling well. Wants to go home..
DATA:
Cardiac Catheterization, 06/09/2025:
CORONARY ANGIOGRAPHY
Dominance: Right
LM: Large vessel with minimal disease.
LAD: Large vessel giving rise to a large branching D1/ramus and moderate caliber D2. There is a focal severe napkin ring ~90% stenosis in the mid LAD after the D2 with TIMI2 flow distally. There is focally severe ~80% stenosis in the proximal D1 and
focally severe ~80% stenosis in the proximal D2.
LCx: Large vessel with a small OM1 and moderate caliber bifurcating OM2. The OM1 has diffuse mild disease throughout and focal proximal stenosis up to ~80%. The OM2 has focally severe ~70% stenosis proximally.
RCA: Large vessel giving rise to a large RPDA, moderate caliber RPL1, and several small distal RPL branches. There is diffuse mild to moderate plaque, a focal 90% stenosis in the mid RCA, and Graham 1,0,0 bifurcation disease at the RPDA/RPL
bifurcation with focal disease up to 90% in the ostium of both branches. There is BARBARA II flow in the RPDA and particularly in the distal RPL branches. The RPDA is a reasonable surgical conduit, however the RPL system, though subtending a relatively
large territory, does not appear to have branches of sufficient caliber for bypass conduits.
RADIATION: dose 516 mGy; DAP 56 Gy*cm2; fluoroscopy time 2.4 min
CONCLUSIONS
1. Mildly elevated LV filling pressure and no aortic stenosis.
2. Severe multivessel coronary artery disease as described with likely culprit stenosis in the mid-LAD, and possibly also the distal RCA.
CABG, 06/11/2025:
Procedure(s) Performed:
1. Standard Sternotomy with Aortic and Right Atrial Cannulation
2. Internal Mammary Artery Harvesting, Left
3. Coronary artery bypass grafting x 5 (In situ RAE to LAD, Ao to radial artery to ramus intermedius, Ao to RSVG to diagonal, Ao to RSVG to OM 2, Ao to RSVG to PDA)
4. Endoscopic vein harvesting of left saphenous vein
5. Endoscopic harvest of left radial artery
6. Left atrial appendage ligation using 40mm AtriClip device
7. Transesophageal echocardiography
8. Placement of Temporary Ventricular Pacing Wires
Dental Extraction, 06/12/2025:
Procedure: Extraction of teeth #4,5,6,10,11,12,19,20,21,22,24,25,26,27
Physical Exam
Vital Signs/Labs
Vital Signs
Temp Pulse Resp BP Pulse Ox
98.6 F 79 14 139/85 95
06/15/25 11:00 06/15/25 11:37 06/15/25 11:37 06/15/25 11:02 06/15/25 11:02
06/14/25 06/15/25 06/16/25
06:59 06:59 06:59
Actual Weight 142.4 kg 141.8 kg
06/15/25 04:30
06/15/25 04:30
PT 16.7 Sec (11.4-14.6) H 06/11/25 16:07
INR 1.34 06/11/25 16:07
APTT 31.6 Sec (23.4-35.0) 06/11/25 16:07
Magnesium 2.4 mg/dl (1.6-2.3) H 06/15/25 04:30
Triglycerides 134 mg/dl (10-149) 06/14/25 04:19
LDL Cholesterol, Calc 154 mg/dl 06/09/25 05:41
VLDL Cholesterol, Calc 27 mg/dl (0-30) 06/09/25 05:41
HDL Cholesterol 37 mg/dl 06/09/25 05:41
06/09/25 06/11/25
05:41 20:50
Mcf-Z-[id number] Pept 1200 886
Physical Exam
Constitutional: No acute distress and Comfortable
EENT: Anicteric and Moist mucous membranes
Cardiovascular: Rhythm & rate is regular, Pedal edema is absent and JVD pressure is normal
Respiratory: Respiratory effort normal and Lungs clear to auscul.
GI: Soft, Distention absent, Non tender and Normal bowel sounds
Neuro/Psych: Oriented and AO x 3
Other: Skin
Data Reviewed
-
Date of Service: June 15, 2025
Medical Decision Making: Reviewed Test Results, Test Interpretation and Review of Case with other Provider
EKG: Tracing Personally Visualized and interpreted
Echo: Report Reviewed by me
Labs: Labs Reviewed by me
Old Records: Reviewed
[2025-06-15 12:39] LABS: Glucose - Point of Care 104 mg/dl (70-99)
[2025-06-15] MEDS: NOVOLOG FLEXPEN-MODERATE RESISTANCE SC (12:42)
--- NOTE | 2025-06-15 12:48 | W.DCSUMMARY ---
Discharge Summary
Discharge Data
Date of Admission: 06/09/25
Date of Discharge: 06/15/25
-
Pending Results: No
Hospital Course
Primary care physician: Dr. David Bone
Outpatient sub prior: Dr. Nasim Weinstein MD.
Inpatient consultants: Urology, Dr. Alber Melissa MD. for right renal mass (pre-op)
Procedures:
1. Coronary artery bypass grafting x 5 (In situ RAE to LAD, Ao to radial artery to ramus intermedius, Ao to RSVG to diagonal, Ao to RSVG to OM 2, Ao to RSVG to PDA) by Dr. Eunice Yu MD. 06/11/25
2. Left atrial appendage ligation using 40mm AtriClip device
Primary Diagnosis:
1. MV CAD
2. NSTEMI
3. Postoperative A-fib 06/13 total of 8 hours
4. Acute postop blood loss anemia (stable without blood transfusion)
5. Acute postop respiratory distress/hypoxemia
6. Acute postop prolonged Qt- Methadone was decreased from 180 mg to 100 mg/day
7. Acute postop atelectasis
8. Acute postop hypovolemia with subsequent hypervolemia
9. Acute post operative VDRF
10. Acute postop pericarditis, + rub
11. Acute postop urinary retention
12. Acute postop hyponatremia
13. Morbidly obese BMI 41.2
14. Mild COPD
15. Current tobacco use
16. Hypertension
17. Hyperlipidemia
18. Prior alcohol/drug abuse now on methadone
19. Prediabetes hemoglobin A1c 6.0
20. Bilateral lower extremity cellulitis, chronic
Secondary Diagnoses:
1. Same as above.
HPI: 54-year-old male with multiple months of angina with escalating symptoms presented to emergency department with NSTEMI on 06/09/2025. Left heart cath showing multivessel coronary artery disease. Patient seen by cardiothoracic surgery service
and deemed an appropriate candidate to undergo coronary artery revascularization. Prior to his procedure he was placed on amoxicillin and doxycycline for cellulitis and a mouth infection.
Hospital course:
Patient presented to the operating room on the date described above for the procedure described above. Patient tolerated procedure well. He was transferred to the cardiovascular intensive care unit to undergo his postoperative recovery. On
postoperative day 0 he was found to be hypoxic and PEEP and FiO2 were increased. His endotracheal tube was pulled back to 3 cm and he was gently diuresed with Lasix 40 mg IV and sedated with propofol. He was kept intubated overnight.
He was successfully extubated on postoperative day 1 at 0610. His Cardizem drip for left radial artery was transition to 2.5 of [facility]. His Rey catheter was removed. And dental was consulted due to his mouth infection. Later that evening at
around 4 PM he was taken to the operating room where he underwent 14 tooth extractions. He continued amoxicillin and doxycycline.
On postoperative day 2 his pacing wires and chest tubes were removed without issues. He developed atrial fibrillation and was treated with an Amio bolus and drip. He converted to sinus rhythm at 1845 for a total of 8 hours of atrial fibrillation.
His QTc was noted to be tween 560 and 570. His methadone was decreased from 180 mg daily to 100 mg daily. Insulin drip was transitioned off and the patient was transition to telemetry.
On postoperative day #3 he continued gentle diuresis with Lasix 40 mg IV. His Cordis was removed and he was placed back on p.o. amiodarone. He continued antibiotics for cellulitis and his teeth extractions.
On postoperative day #4 no new events occurred overnight. Patient's case was discussed with the attending physician on morning rounds. He was diuresed again with Lasix 40 mg IV x 1. Discussion was had with cardiology Dr. Keaton MD. regarding
the patient's QTc on amiodarone therapy as well as need for anticoagulation. It was decided that the patient will continue amiodarone on discharge but will be decreased to [address] Pugh, regarding the patient's anticoagulation: 'If
no A-fib noted, we can consider a single episode as postop AF and will not need long-term anticoagulation therapy. However if atrial fibrillation is noted after discharge, he will need long-term anticoagulation therapy.' No further episodes of
A-fib were noted and the patient was not discharged on anticoagulation. He was ambulating well with assistance and was eager to go home. He was successfully discharged to home on postoperative day #4.
Instructions were given to recheck BMP on 06/19/2025 to evaluate potassium therapy while on daily Lasix. As well as EKG to evaluate QTc on daily amiodarone.
Home medication changes:
Methadone was decreased from 180 mg to 100 mg due to prolonged QT
Potassium 20 mill equivalents daily was ordered due to home therapy with Lasix 40 mg daily
Stop lisinopril�hydrochlorothiazide 10-12.5 mg daily, reevaluate on follow-up with cardiology
Continue amlodipine 2.5 mg daily for left radial artery harvest
Continue amiodarone 200 mg daily for postoperative atrial fibrillation prophylaxis
Continue amoxicillin 500 mg every 8 and doxycycline 100 mg every 12 for 3 additional days due to cellulitis and mouth infection
See other/complete set of changes listed below
Discharge Plan
-
Patient Disposition: Home (Routine Discharge)
Discharge Diagnosis/Procedures: Coronary artery bypass grafting x 5 utilizing left radial artery, plus exclusion of left atrial pended with #40 AtriClip
NSTEMI
Postoperative A-fib 06/13 total of 8 hours
Acute postop blood loss anemia (stable without blood transfusion)
Acute postop respiratory distress/hypoxemia
Acute postop prolonged Qt- Methadone was decreased from 180 mg to 100 mg/day
Acute postop atelectasis
Acute postop hypovolemia with subsequent hypervolemia
Acute postop pericarditis, + rub
Acute postop urinary retention
Acute postop hyponatremia
Morbidly obese BMI 41.2
Mild COPD
Current tobacco use
Hypertension
Hyperlipidemia
Prior alcohol/drug abuse now on methadone
Prediabetes hemoglobin A1c 6.0
Bilateral lower extremity cellulitis, chronic
Condition: Fair
Diet: Low Cholesterol and Restrict fluids to 64 oz
Activity: No strenuous activity
Driving Restrictions: Not until seen by your Dr
Bathing Restrictions: OK to Shower
Blood Work: BMP-Draw on Thursday06/19/25 to eval K+ on daily Lasix
Others Tests: EKG-Perform on 06/19/25 to monitor QTc on Amiodarone
Other Services: Cardiac Rehab
Specialty Instructions: Weigh Daily- Call MD for wt gain/loss 3 lbs overnight/5 lbs in 1 week
Activity Restrictions/Additional Instructions:
ACTIVITY:
-No strenuous activity: no heavy lifting, pushing, pulling anything over 15 pounds for one month
-continue to use stairs as tolerated
DRIVING RESTRICTIONS:
-No driving for one month or until approved by your surgeon
WOUND CARE:
-Shower daily. Use soap & water.
-No lotions, creams or powders on incision area.
DIET:
-continue a low fat/low cholesterol diet.
-IF you are diabetic, continue carb controlled diet.
CARDIAC REHAB:
-Please make appointment to start in 5-6 weeks with your local hospital program. (See Cardiac Rehabilitation Discharge Booklet).
SPECIALTY INSTRUCTIONS:
-Weigh yourself daily. Call your physician for any weight gain/loss of 3 lbs overnight or 5 lbs in one week.
-REPORT any clicking noise or uneven appearance of your sternum to your surgeon immediately.
-If you smoke, you are instructed to quit. The [place] smoking hotline phone number is [phone]
Stand Alone Forms: DC Instructions- Cath/EP Lab
Referrals:
[facility] [Other]
Referral Note:
CT Transitional Care Nurse [Outside] - in one to two days
Referral Note:
The Cardiothoracic Transitional Care Nurse will call you to set up a visit in 1-2 days.
Mary Calzada CRNP [Specified Professional Personl, Cardiology] - 08/03/25 10:00 am
David Bone MD [Family Provider, Family Practice] - in four to six weeks
Referral Note: Please make an appointment in four to six weeks.
Marshall Ott MD [Active, Pulmonary Medicine] - in four to six weeks
Referral Note: Obstructive sleep apnea evaluation.
Eunice Yu MD [Active, Cardiac Surgery] - 07/12/25 11:00 am
Prescriptions:
New
amoxicillin 500 mg Capsule
500 mg PO Q8 3 Days Qty: 9 0RF
doxycycline hyclate 100 mg Capsule
100 mg PO Q12 4 Days Qty: 8 0RF
cyclobenzaprine 10 mg Tablet
5 mg PO Q8HPRN PRN (Reason: muscle spasm) Qty: 5 0RF
acetaminophen 325 mg Tablet
650 mg PO Q4HPRN PRN (Reason: mild pain,headache,temp >101F ) Qty: 0 0RF
nicotine 14 mg/24 hr Patch 24 Hour
14 mg transdermal DAILY 10 Days Qty: 10 0RF
amlodipine 2.5 mg Tablet
2.5 mg PO DAILY Qty: 90 3RF
clopidogrel 75 mg Tablet
75 mg PO DAILY Qty: 90 4RF
pantoprazole 40 mg Tablet,Delayed Release (Dr/Ec)
40 mg PO DAILY Qty: 90 3RF
aspirin 81 mg Tablet,Chewable
81 mg PO DAILY Qty: 0 0RF
gabapentin 100 mg Capsule
100 mg PO TID Qty: 30 0RF
methadone [Methadose] 10 mg/mL Concentrate
100 mg PO DAILY Qty: 0 0RF
rosuvastatin 20 mg Tablet
40 mg PO QPM Qty: 30 1RF
amiodarone [Pacerone] 200 mg Tablet
200 mg PO DAILY Qty: 90 0RF
potassium chloride [K-Tab] 20 mEq tablet extended release
20 meq PO DAILY Qty: 30 1RF
Rx Instructions:
Take potassium chloride 20 meq daily while on 40mg Lasix. If you stop your Lasix, stop your potassium
Continued
metoprolol succinate [Toprol XL] 100 mg Tablet Extended Release 24 Hr
100 mg PO DAILY
furosemide [Lasix] 40 mg Tablet
40 mg PO DAILY
Discontinued
methadone [Methadose] 100 MG/10 ML concentrate
180 mg PO DAILY
lisinopril-hydrochlorothiazide 10-12.5 mg Tablet
1 tab PO DAILY
Discharge Orders:
Discharge Patient (As Directed); Ordered 06/15/25
Ordered By: Bárbara Denney
Care Plan Goals
Care Plan Goals:
Problem: Readiness for enhanced knowledge related to diagnosis and treatment plan
Goal: Understand your diagnosis and treatment plan needs, including medications if applicable.
Instructions: Know your diagnosis, underlying causes and treatment plan options, including medications if applicable. Consult with your health care team to learn about your diagnosis and treatment plan, including medications if applicable.
Discharge Date and Time
Print Language: MOROCCAN
--- NOTE | 2025-06-15 14:25 | PTCARENOTE ---
Reviewed discharge instructions with patient who verbalized understanding. Discussed sternal precautions and activity restrictions. Telemetry and PIV INT removed. Patient left with instructions, education packets, and belongings. Patient discharged
to home with brother driving.
[2025-06-16 08:00] LABS: Glucose - Point of Care 251 mg/dl (70-99)
== END 2025-06-15 14:42 | disposition home or self-care (01) | DRG 233 ==
LOC: IVU 03:23
PROVIDERS: Clinical Nurse Specialist Acute Care; Internal Medicine; Student in an Organized Health Care Education/Training Program; ADMITTING PHYSICIAN Internal Medicine; ATTENDING PHYSICIAN Student in an Organized Health Care Education/Training Program; CONSULT PHYSICIAN Internal Medicine; CONSULT PHYSICIAN Urology; EMERGENCY PHYSICIAN Emergency Medicine; FAMILY PHYSICIAN Family Medicine; OTHER PHYSICIAN Dentist Oral and Maxillofacial Surgery; OTHER PHYSICIAN Internal Medicine
PROC: B2111ZZ Fluoroscopy of Multiple Coronary Arteries using Low Osmolar Contrast (ICD-10-PCS; 2025-06-09)
PROC: 4A023N7 Measurement of Cardiac Sampling and Pressure, Left Heart, Percutaneous Approach (ICD-10-PCS; 2025-06-09)
PROC: B2151ZZ Fluoroscopy of Left Heart using Low Osmolar Contrast (ICD-10-PCS; 2025-06-09)
PROC: 021309W Bypass Coronary Artery, Four or More Arteries from Aorta with Autologous Venous Tissue, Open Approach (ICD-10-PCS; 2025-06-11)
PROC: 02L70CK Occlusion of Left Atrial Appendage with Extraluminal Device, Open Approach (ICD-10-PCS; 2025-06-11)
PROC: 5A1221Z Performance of Cardiac Output, Continuous (ICD-10-PCS; 2025-06-11)
PROC: 02100Z9 Bypass Coronary Artery, One Artery from Left Internal Mammary, Open Approach (ICD-10-PCS; 2025-06-11)
PROC: 03BC4ZZ Excision of Left Radial Artery, Percutaneous Endoscopic Approach (ICD-10-PCS; 2025-06-11)
PROC: 06BQ4ZZ Excision of Left Saphenous Vein, Percutaneous Endoscopic Approach (ICD-10-PCS; 2025-06-11)
PROC: 0CDXXZ1 Extraction of Lower Tooth, Multiple, External Approach (ICD-10-PCS; 2025-06-12)
PROC: 0CDWXZ1 Extraction of Upper Tooth, Multiple, External Approach (ICD-10-PCS; 2025-06-12)
PROC: 5A09357 Assistance with Respiratory Ventilation, Less than 24 Consecutive Hours, Continuous Positive Airway Pressure (ICD-10-PCS; 2025-06-15)
DX: I21.4 Non-ST elevation (NSTEMI) myocardial infarction (principal); J95.821 Acute postprocedural respiratory failure; F11.20 Opioid dependence, uncomplicated; Z68.41 Body mass index [BMI] 40.0-44.9, adult; D62 Acute posthemorrhagic anemia; J98.11 Atelectasis; I30.8 Other forms of acute pericarditis; E87.1 Hypo-osmolality and hyponatremia; L03.115 Cellulitis of right lower limb; L03.116 Cellulitis of left lower limb; I10 Essential (primary) hypertension; I25.10 Atherosclerotic heart disease of native coronary artery without angina pectoris; I89.0 Lymphedema, not elsewhere classified; E87.6 Hypokalemia; J44.9 Chronic obstructive pulmonary disease, unspecified; K76.0 Fatty (change of) liver, not elsewhere classified; K02.9 Dental caries, unspecified; K04.7 Periapical abscess without sinus; N28.89 Other specified disorders of kidney and ureter; Y83.2 Surgical operation with anastomosis, bypass or graft as the cause of abnormal reaction of the patient, or of later complication, without mention of misadventure at the time of the procedure; K57.30 Diverticulosis of large intestine without perforation or abscess without bleeding; E66.811 Obesity, class 1; I48.91 Unspecified atrial fibrillation; G89.4 Chronic pain syndrome; E86.1 Hypovolemia; F17.210 Nicotine dependence, cigarettes, uncomplicated; R33.9 Retention of urine, unspecified; N20.0 Calculus of kidney; E78.5 Hyperlipidemia, unspecified; R73.03 Prediabetes; Z79.899 Other long term (current) drug therapy; Z82.49 Family history of ischemic heart disease and other diseases of the circulatory system
CPT/HCPCS: 70355; 71045; 71046; 71275; 74178; 80048; 80053; 80061; 81003; 81015; 82248; 82330; 82565; 82805; 82947; 82962; 83036; 83735; 83880; 84132; 84302; 84478; 84484; 84520; 85014; 85018; 85025; 85027; 85049; 85610; 85730; 86850; 86900; 86901; 86920; 93005; 93306; 93458; 93880; 93923; 93931; 93970; 94002; 94010; 94640; 94660; 96365; 96366; 99152; 99153; 99291; C1713; C1769; J0282; J2916; P9045; P9047; Q9950; Q9967